=== PATIENT | female | born 1950 | race Caucasian/White ===

== ENCOUNTER → 2016-12-22 | Day surgery (SDC) | payer OTHER ==
[2016-12-05 13:20] VITALS: Ht 154.9 cm; Wt 52.3 kg
[~2016-12-22] VITALS: Ht 154.9 cm; Wt 52.3 kg
[~2016-12-22] MED LIST: ACETAMINOPHEN 325 MG TAB PO PRN; ADAL40KI SC; AMVISC PLUS 0.8ML SYRINGE INT OCU ONE; ATROPINE SULFATE 0.1 MG/ML 5ML SYR IV PRN; BSS FLUSH ONE; ETOD400T PO; EpHEDrine SULFATE INJ 50 MG/ML AMP IV PRN; EpINEphrine INJ 1MG/ML AMP 1 MG/ML AMP ONE; FOLI1TAB7 PO; IRON PO; LACTATED RINGER'S 1000ML 500 ML IV SCH; LIDOCAINE 3.5% OPH GEL PER APPLICATION CHARGE ONE; LIDOCAINE HCL 1% MPF 2 ML VIAL ONE; LUTE20TA PO; METH2.5T PO; MIDAZOLAM HCL 1 MG/ML 2ML VIAL ONE; MULT-506 PO; OCUCOAT 1 ML SOLN IO ONE; POVIDONE-IODINE OP SOLN 30 ML BTL ONE; PROPARACAINE 0.5% OP SOLN PER DROP CHARGE OPL SCH; TOBRAMYCIN/DEXAMETHASONE OPH OINT PER APPLN CHARGE ONE
[2016-12-22] MEDS: PHENYLEPHRINE HCL 2.5% OP SOLN PER DROP CHARGE OPL SCH ×2 (07:28→07:33)
[2016-12-22] MEDS: TROPICAMIDE 1% OP SOLN PER DROP CHARGE OPL SCH ×2 (07:29→07:34)
[2016-12-22] MEDS: CYCLOPENTOLATE HCL 1% OP SOLN PER DROP CHARGE OPL SCH ×2 (07:30→07:35)
[2016-12-22] MEDS: KETOROLAC 0.5% OP SOLN PER DROP CHARGE OPL SCH ×2 (07:31→07:36)
[2016-12-22] MEDS: GATIFLOXACIN OP SOLN PER DROP CHARGE OPL SCH ×2 (07:32→07:42)
--- NOTE | 2016-12-22 07:49 | History & Physical Bridge - SC ---
H&P Re-Evaluation Bridge Note: I have examined the patient, reviewed the History & Physical and in the interval since the performance of the History & Physical I have noted the following changes of clinical significance: No changes noted
--- NOTE | 2016-12-22 08:32 | [facility] Operative Report ---
Operative Report Date of Service Dec 22, 2016. Operative Report 1. PREOPERATIVE DIAGNOSIS: Cataract of the left eye. 2. POSTOPERATIVE DIAGNOSIS: Same. 3. PROCEDURE: Phacoemulsification with intraocular lens implantation of the left eye. SURGEON: Dr. Christopher Velarde. ANESTHESIA: Topical Lidocaine gel, 1% Non- Preserved intracameral Lidocaine, and monitored intravenous sedation. INDICATIONS FOR THE PROCEDURE: The patient is a 66 - year-old female with a history of cataract of the left eye causing significant visual impairment. The details of the proposed procedure were explained to the patient who asked appropriate questions and following discussion of all risks, benefits and alternatives agreed to have the procedure done. 4. OPERATION AND FINDINGS: DESCRIPTION OF PROCEDURE: After informed consent was obtained, the patient was brought to the Operating Room at the [facility]. The patient was placed in a supine position and then the left eye was prepped and draped in the usual sterile fashion for intraocular surgery. A drop of topical Lidocaine gel was placed in the operative eye. A wire lid speculum was then placed in the fornices. A corneal paracentesis was then created temporally. The Non-Preserved Lidocaine was then instilled into the anterior chamber. The anterior chamber was then pressurized with viscoelastic. A 2.0 mm clear corneal incision was then created temporally. A cystotome was inserted into the anterior chamber and used to create a tear in the anterior lens capsule. This capsular tear was then used to create a small flap and the flap was dragged in a counterclockwise direction in order to create a continuous curvilinear capsulorrhexis. Hydrodissection was accomplished with balanced salt solution. Phacoemulsification of the lens nucleus was then performed in a standard [id number] technique. The phaco time was 36 seconds with an average power of 16 %. The remaining cortical material was removed using irrigation aspiration. The capsular bag was then filled with viscoelastic. A Bausch & Lomb MI60L +23.0 diopters lens was then loaded into the injector and injected into the capsular bag. The remaining viscoelastic was removed with the irrigation aspiration handpiece. The wound was hydrated and then checked and found to be watertight. The intraocular pressure was checked and found to be adequate. The wire lid speculum was removed and the patient's face was cleaned and dried. TobraDex ointment was placed in the inferior fornix. The patient was discharged to the Recovery Room having tolerated the procedure well. There were no complications. The patient will be seen tomorrow in the office for follow-up. I attest to the content of the Intraoperative Record and any orders documented therein. Any exceptions are noted below.
--- NOTE | 2016-12-22 08:32 | Discharge Instructions-SurgCtr ---
Discharge Instructions Date of Service Dec 22, 2016. Visit Reason for Visit: Cataract Left Eye Discharge Discharge Diagnosis / Problem: cataract Discharge Goals Goal(s): Improve function Activity Recommendations Activity Limitations: per Instructions/Follow-up section Anesthesia . Post Anesthesia Instructions: If you have had General Anesthesia or IV Sedation: * Do not drive today. * Resume driving when surgeon permits. * Do not make important decisions or sign legal documents today. * Call surgeon for: 1. Temperature elevations greater than 101 degrees F. 2. Uncontrollable pain. 3. Excessive bleeding. 4. Persistent nausea and vomiting. 5. Medication intolerance (nausea, vomiting or rash). * For nausea and vomiting use only clear liquids such as: tea, soda, bouillon until nausea subsides, then gradually increase diet as tolerated. * If you have any concerns or questions, call your surgeon's office. If physician is unavailable and it is an emergency, call 911 or go to the nearest emergency room. . Instructions / Follow-Up Instructions / Follow-Up ACTIVITY RECOMMENDATIONS: * No strenuous lifting, jogging or running for 4 days * No swimming or yard work for 1 week. * Limited bending is permitted, such as putting on shoes. RETURN TO SCHOOL/WORK: No work until seen by physician in office. MEDICATIONS: Resume previous medications unless instructed otherwise by your surgeon. This includes eye drops for glaucoma. Zymaxid/Gatifloxacin (zepeda cap) - one drop every 2 hours until bedtime Nevanac/Ilevro/Prolensa/Ketorolac (mckeon cap) - one drop every 4 hours until bedtime Prednisolone (white/pink cap, SHAKE WELL) - one drop every 2 hours until bedtime Starting tomorrow - all 3 drops every 4 hours until seen in the office Optive drops - as needed for discomfort SPECIAL CARE INSTRUCTIONS: * Wear eyeshield when sleeping, for four nights. * You may wear your own glasses or sunglasses while awake. * You may read or watch TV * You may shower and wash your face, but be gentle around the eye and pat dry. * Blurry vision and mild irritation are normal. * Call office if pain is more severe or vision becomes dark at . FOLLOW UP VISIT: Follow-up with Dr Velarde tomorrow. Diet Recommendations Home Diet: resume previous diet Procedures Procedures Performed: Left Cataract Phacoemulsification With Intraocular Lens Implant Pending Studies Studies pending at discharge: no Medical Emergencies . Who to Call and When: Medical Emergencies: If at any time you feel your situation is an emergency, please call 911 immediately. . Non-Emergent Contact Non-Emergency issues call your: [employer] . . "Provider Documentation" section prepared by Christopher Velarde. .
[2016-12-22 08:33] VITALS: TEMP 36.6
--- NOTE | 2016-12-22 08:38 | Anesthesia Progress Nt - [facility] ---
Anesthesia Post Op Note Date & Time Dec 22, 2016 at 08:38 Vital Signs Pain Intensity: 0 Vital Signs Past 12 Hours Date Time Temp Pulse Resp B/P (MAP) Pulse Ox O2 Delivery O2 Flow Rate FiO2 12/22/16 07:19 36.9 62 22 121/67 (85) 100 Room Air Notes Mental Status: alert / awake / arousable, participated in evaluation Pt Amnestic to Procedure: Yes Nausea / Vomiting: adequately controlled Pain: adequately controlled Airway Patency, RR, SpO2: stable & adequate BP & HR: stable & adequate Hydration State: stable & adequate Anesthetic Complications: no major complications apparent
[2016-12-22 08:55] VITALS: BP 103/46; PULSE 57; O2SAT 99
== END | disposition home or self-care (01) ==
LOC: X.SURG 06:52
PROVIDERS: ATTEND Ophthalmology
DX: H26.9 Unspecified cataract (principal); M06.9 Rheumatoid arthritis, unspecified; Z79.899 Other long term (current) drug therapy

== ENCOUNTER → 2017-01-26 | Day surgery (SDC) | payer OTHER ==
[2017-01-04 07:54] VITALS: Ht 154.9 cm; Wt 52.3 kg
[~2017-01-26] VITALS: Ht 154.9 cm; Wt 52.3 kg
[~2017-01-26] MED LIST changes: +500ML BSS 0.3ML EPI 1:1000PF IRRIG ONE; +ONDANSETRON INJ 2 MG/ML 2 ML VIAL IV PRN; -PROPARACAINE 0.5% OP SOLN PER DROP CHARGE OPL SCH; +PROPARACAINE 0.5% OP SOLN PER DROP CHARGE OPR SCH
[2017-01-26] MEDS: PHENYLEPHRINE HCL 2.5% OP SOLN PER DROP CHARGE OPR SCH ×2 (10:14→10:19)
[2017-01-26] MEDS: TROPICAMIDE 1% OP SOLN PER DROP CHARGE OPR SCH ×2 (10:15→10:20)
[2017-01-26] MEDS: CYCLOPENTOLATE HCL 1% OP SOLN PER DROP CHARGE OPR SCH ×2 (10:16→10:21)
[2017-01-26] MEDS: KETOROLAC 0.5% OP SOLN PER DROP CHARGE OPR SCH ×2 (10:17→10:22)
[2017-01-26] MEDS: GATIFLOXACIN OP SOLN PER DROP CHARGE OPR SCH ×2 (10:18→10:28)
--- NOTE | 2017-01-26 11:37 | Discharge Instructions-SurgCtr ---
Discharge Instructions Date of Service Jan 26, 2017. Visit Reason for Visit: Cataract Right Eye Discharge Discharge Diagnosis / Problem: cataract Discharge Goals Goal(s): Improve function Activity Recommendations Activity Limitations: per Instructions/Follow-up section Anesthesia . Post Anesthesia Instructions: If you have had General Anesthesia or IV Sedation: * Do not drive today. * Resume driving when surgeon permits. * Do not make important decisions or sign legal documents today. * Call surgeon for: 1. Temperature elevations greater than 101 degrees F. 2. Uncontrollable pain. 3. Excessive bleeding. 4. Persistent nausea and vomiting. 5. Medication intolerance (nausea, vomiting or rash). * For nausea and vomiting use only clear liquids such as: tea, soda, bouillon until nausea subsides, then gradually increase diet as tolerated. * If you have any concerns or questions, call your surgeon's office. If physician is unavailable and it is an emergency, call 911 or go to the nearest emergency room. . Instructions / Follow-Up Instructions / Follow-Up ACTIVITY RECOMMENDATIONS: * No strenuous lifting, jogging or running for 4 days * No swimming or yard work for 1 week. * Limited bending is permitted, such as putting on shoes. RETURN TO SCHOOL/WORK: No work until seen by physician in office. MEDICATIONS: Resume previous medications unless instructed otherwise by your surgeon. This includes eye drops for glaucoma. Zymaxid/Gatifloxacin (zepeda cap) - one drop every 2 hours until bedtime Nevanac/Ilevro/Prolensa/Ketorolac (mckeon cap) - one drop every 4 hours until bedtime Prednisolone/Durezol (white/pink cap, SHAKE WELL) - one drop every 2 hours until bedtime Starting tomorrow - all 3 drops every 4 hours until seen in the office Optive drops - as needed for discomfort SPECIAL CARE INSTRUCTIONS: * Wear eyeshield when sleeping, for four nights. * You may wear your own glasses or sunglasses while awake. * You may read or watch TV * You may shower and wash your face, but be gentle around the eye and pat dry. * Blurry vision and mild irritation are normal. * Call office if pain is more severe or vision becomes dark at . FOLLOW UP VISIT: Follow-up with Dr Velarde tomorrow. Diet Recommendations Home Diet: resume previous diet Procedures Procedures Performed: Right Cataract Phacoemulsification With Intraocular Lens Implant Pending Studies Studies pending at discharge: no Medical Emergencies . Who to Call and When: Medical Emergencies: If at any time you feel your situation is an emergency, please call 911 immediately. . Non-Emergent Contact Non-Emergency issues call your: [employer] . . "Provider Documentation" section prepared by Christopher Velarde. .
--- NOTE | 2017-01-26 11:38 | [facility] Operative Report ---
Operative Report Date of Service Jan 26, 2017. Operative Report 1. PREOPERATIVE DIAGNOSIS: Cataract of the right eye. 2. POSTOPERATIVE DIAGNOSIS: Same. 3. PROCEDURE: Phacoemulsification with intraocular lens implantation of the right eye. SURGEON: Dr. Christopher Velarde. ANESTHESIA: Topical Lidocaine gel, 1% Non- Preserved intracameral Lidocaine, and monitored intravenous sedation. INDICATIONS FOR THE PROCEDURE: The patient is a 66 - year-old female with a history of cataract of the right eye causing significant visual impairment. The details of the proposed procedure were explained to the patient who asked appropriate questions and following discussion of all risks, benefits and alternatives agreed to have the procedure done. 4. OPERATION AND FINDINGS: DESCRIPTION OF PROCEDURE: After informed consent was obtained, the patient was brought to the Operating Room at the [facility]. The patient was placed in a supine position and then the right eye was prepped and draped in the usual sterile fashion for intraocular surgery. A drop of topical Lidocaine gel was placed in the operative eye. A wire lid speculum was then placed in the fornices. A corneal paracentesis was then created temporally. The Non-Preserved Lidocaine was then instilled into the anterior chamber. The anterior chamber was then pressurized with viscoelastic. A 2.0 mm clear corneal incision was then created temporally. A cystotome was inserted into the anterior chamber and used to create a tear in the anterior lens capsule. This capsular tear was then used to create a small flap and the flap was dragged in a counterclockwise direction in order to create a continuous curvilinear capsulorrhexis. Hydrodissection was accomplished with balanced salt solution. Phacoemulsification of the lens nucleus was then performed in a standard [id number] technique. The phaco time was 28 seconds with an average power of 15 %. The remaining cortical material was removed using irrigation aspiration. The capsular bag was then filled with viscoelastic. A Bausch & Lomb MI60L +23.5 diopters lens was then loaded into the injector and injected into the capsular bag. The remaining viscoelastic was removed with the irrigation aspiration handpiece. The wound was hydrated and then checked and found to be watertight. The intraocular pressure was checked and found to be adequate. The wire lid speculum was removed and the patient's face was cleaned and dried. TobraDex ointment was placed in the inferior fornix. The patient was discharged to the Recovery Room having tolerated the procedure well. There were no complications. The patient will be seen tomorrow in the office for follow-up. I attest to the content of the Intraoperative Record and any orders documented therein. Any exceptions are noted below.
--- NOTE | 2017-01-26 11:56 | Anesthesia Progress Nt - [facility] ---
Anesthesia Post Op Note Date & Time Jan 26, 2017 at 11:56 Vital Signs Pain Intensity: 0 Vital Signs Past 12 Hours Date Time Temp Pulse Resp B/P (MAP) Pulse Ox O2 Delivery O2 Flow Rate FiO2 01/26/17 11:38 36 54 16 105/64 (78) 100 Room Air 01/26/17 10:04 36.5 55 18 129/64 (85) 100 Room Air Notes Mental Status: alert / awake / arousable, participated in evaluation Pt Amnestic to Procedure: Yes Nausea / Vomiting: adequately controlled Pain: adequately controlled Airway Patency, RR, SpO2: stable & adequate BP & HR: stable & adequate Hydration State: stable & adequate Anesthetic Complications: no major complications apparent
[2017-01-26 12:02] VITALS: BP 114/72; PULSE 65; O2SAT 100
== END | disposition home or self-care (01) ==
LOC: X.SURG 09:21
PROVIDERS: ATTEND Ophthalmology
DX: H26.9 Unspecified cataract (principal); M85.80 Other specified disorders of bone density and structure, unspecified site; M06.9 Rheumatoid arthritis, unspecified; Z79.899 Other long term (current) drug therapy

== ENCOUNTER → 2017-04-27 | Outpatient (CLI) | payer OTHER ==
[~2017-04-27] MED LIST changes: -500ML BSS 0.3ML EPI 1:1000PF IRRIG ONE; -ACETAMINOPHEN 325 MG TAB PO PRN; -AMVISC PLUS 0.8ML SYRINGE INT OCU ONE; -ATROPINE SULFATE 0.1 MG/ML 5ML SYR IV PRN; -BSS FLUSH ONE; -EpHEDrine SULFATE INJ 50 MG/ML AMP IV PRN; -EpINEphrine INJ 1MG/ML AMP 1 MG/ML AMP ONE; -LACTATED RINGER'S 1000ML 500 ML IV SCH; -LIDOCAINE 3.5% OPH GEL PER APPLICATION CHARGE ONE; -LIDOCAINE HCL 1% MPF 2 ML VIAL ONE; -MIDAZOLAM HCL 1 MG/ML 2ML VIAL ONE; -OCUCOAT 1 ML SOLN IO ONE; -ONDANSETRON INJ 2 MG/ML 2 ML VIAL IV PRN; -POVIDONE-IODINE OP SOLN 30 ML BTL ONE; -PROPARACAINE 0.5% OP SOLN PER DROP CHARGE OPR SCH; -TOBRAMYCIN/DEXAMETHASONE OPH OINT PER APPLN CHARGE ONE
== END | disposition home or self-care (01) ==
LOC: C.LAB 12:07
PROVIDERS: ATTEND Internal Medicine Hematology & Oncology
DX: D70.9 Neutropenia, unspecified (principal); D69.6 Thrombocytopenia, unspecified

== ENCOUNTER → 2017-06-13 | Outpatient (CLI) | payer OTHER ==
--- NOTE | 2017-06-14 13:44 | MAMMOGRAPHY REPORT ---
BILATERAL DIGITAL SCREENING MAMMOGRAM TOMOSYNTHESIS WITH CAD: 06/13/2017 CLINICAL HISTORY: Routine screening. Patient has no complaints. TECHNIQUE: Breast tomosynthesis in addition to standard 2D mammography was performed. Current study was also evaluated with a Computer Aided Detection (CAD) system. COMPARISON: Comparison is made to exams dated: 06/06/2016 mammogram, 06/04/2015 mammogram, 4 mammogram, 05/27/2013 mammogram, 05/08/2012 mammogram, and 04/28/2011 mammogram - [facility]. BREAST COMPOSITION: There are scattered areas of fibroglandular density in both breasts. FINDINGS: The parenchymal pattern is unchanged. No developing mass, architectural distortion or clus ter of suspicious microcalcifications is seen in either breast. IMPRESSION: ACR BI-RADS CATEGORY 2: BENIGN There is no mammographic evidence of malignancy. A 1 year screening mammogram is recommended. The pa tient will receive written notification of the results. Approximately 10% of breast cancers are not detected with mammography. A negative mammographic report should not delay biopsy if a clinically suggestive mass is present. Leonie Costello M.D. ay/:06/13/2017 16:48:02 Senior Clinical Project Manager: Ruth FARRIS(Nanci)(Jonn)([place]), [facility] letter sent: Normal 1/2 BI-RADS Code: ACR BI-RADS Category 2: Benign
== END | disposition home or self-care (01) ==
LOC: C.MAMM 14:14
PROVIDERS: ATTEND Family Medicine
DX: Z12.31 Encounter for screening mammogram for malignant neoplasm of breast (principal)

== ENCOUNTER → 2017-07-25 | Outpatient (CLI) | payer OTHER ==
[~2017-07-25] MED LIST changes: -FOLI1TAB7 PO; +FOLI1TAB8 PO
--- NOTE | 2017-07-25 21:28 | DIAGNOSTIC IMAGING REPORT ---
R SHOULDER MIN 2 VIEWS ROUTINE CLINICAL HISTORY: M25.519 RIGHT SHOULDER PAIN COMPARISON: None. DISCUSSION: No acute fractures or dislocations are visualized. There are mild degenerative changes. There is a corticated ossicle adjacent to the superior lateral margin of the scapular glenoid. This is felt to be old. IMPRESSION: 1. Degenerative change. 2. No acute fractures or dislocations Electronically signed by: Avi Holguin M.D. 07/25/2017 9:27 PM Dictated Date/Time: 07/25/2017 9:26 PM
== END | disposition home or self-care (01) ==
LOC: C.RAD 20:49
PROVIDERS: ATTEND Family Medicine
DX: M25.519 Pain in unspecified shoulder (principal)

== ENCOUNTER → 2017-09-25 | Outpatient (CLI) | payer OTHER ==
--- NOTE | 2017-09-25 18:10 | DIAGNOSTIC IMAGING REPORT ---
RIGHT SHOULDER MRI HISTORY: Right shoulder pain. TECHNIQUE: Multiplanar multisequence MRI of the right shoulder was performed without contrast. COMPARISON STUDY: Right shoulder 08/04/2017. FINDINGS: AC joint: Moderate AC joint arthrosis demonstrated by joint space narrowing, joint fluid, and small marginal osteophytes. Rotator cuff: Complete full-thickness tear of the supraspinatus tendon which demonstrates up to 3.6 cm of retraction to the level of the glenoid. There is also a near complete full-thickness tear of the infraspinatus tendon with greater than 90% of the fibers involved. This also demonstrates retraction to the level of the glenoid. The teres minor is thin but intact. Focal complete full-thickness tear at the proximal subscapularis tendon best seen on axial image 9. The tear measures 5 mm in size and is best seen on axial image 9 of 21. Near complete fatty atrophy of the supraspinatus, infraspinatus, subscapularis muscles. Abnormal oval-shaped focus within the musculotendinous junction of the infraspinatus which measures 1.5 cm. This could represent an area of focal calcification or old hemorrhage related to trauma. This is best seen on axial image 9. Labrum: The superior labrum is not identified and likely completely torn/macerated. Biceps: The proximal long head of the biceps tendon is thinned suggestive of a partial tear and is medially dislocated from the proximal bicipital groove. Bones: No acute fracture or dislocation. Small marginal osteophytes at the glenohumeral joint. Patchy nonspecific marrow edema at the humeral neck. Cartilage: Full-thickness cartilage loss within the supraclinoid and majority of the humeral head consistent with degenerative change. Miscellaneous: Moderate joint effusion. Multiple small intra-articular loose bodies. IMPRESSION: 1. Large full-thickness rotator cuff tears as described above. The full-thickness tear through the proximal subscapularis tendon may be subacute. 2. The superior labrum is not identified consistent with a tear/maceration. 3. Multiple small intra-articular loose bodies and a moderate joint effusion. 4. Partially torn and medially dislocated proximal long head of the biceps tendon. 5. 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 6. Additional findings as described above. Electronically signed by: Daren Madden M.D. 09/25/2017 6:09 PM Dictated Date/Time: 09/25/2017 5:55 PM
== END | disposition home or self-care (01) ==
LOC: C.MRIBC 15:15
PROVIDERS: ATTEND Family Medicine
DX: M75.101 Unspecified rotator cuff tear or rupture of right shoulder, not specified as traumatic (principal); S46.119A Strain of muscle, fascia and tendon of long head of biceps, unspecified arm, initial encounter; X58.XXXA Exposure to other specified factors, initial encounter; M19.011 Primary osteoarthritis, right shoulder

== ENCOUNTER 2017-11-16 07:24 | Inpatient (IN) | payer OTHER ==
--- NOTE | 2017-10-30 07:55 | History and Physical ---
History & Physical Date of Service Oct 30, 2017. History & Physical CHIEF COMPLAINT: Right shoulder pain. HISTORY OF PRESENT ILLNESS: This 67-year-old female presents to clinic today for preoperative history and physical. She complains of increased pain and decreased range of motion in the right upper extremity since June 2017. She states she has failed conservative treatment with injections and physical therapy and is experiencing significant weakness in the right upper extremity that is affecting her activities of daily living. PAST SURGICAL HISTORY: Bilateral intraocular lens transplant, bilateral cataract removal, colonoscopy, tenosynovectomy, tubal ligation, dental excision and bilateral hand surgery. PAST MEDICAL HISTORY: Anemia, leukocytopenia, osteopenia, rheumatoid arthritis and thrombocytopenia. FAMILY HISTORY: Positive for breast cancer, COPD, heart disease, lung cancer and stroke. ALLERGIES: The patient has no known drug allergies. CURRENT MEDICATIONS: She is taking, etodolac 400 mg oral tablet 2 tabs twice daily as needed for pain, Lutein 20 mg oral tablet 1 tab daily, multivitamin unknown dosage 1 tab daily, tramadol 50 mg oral tablet 1 tab every 6 hours as needed for pain, triamcinolone 0.5% topical cream 1 application 3 times daily as needed, Tylenol Extra Strength dmoz-leh-ksgywga 500 mg tablet 1-2 tabs as needed for pain. SOCIAL HISTORY: The patient denies a history of smoking, alcohol or illicit drug use. PHYSICAL EXAMINATION: Skin: The patient's skin is normal in appearance. No open skin lesions or discharge. Eyes: Pupils are equal and reactive to light and accommodating. Extraocular movements are intact. Throat: Posterior oropharynx clear with absence of edema, erythema or exudate. Cardiovascular exam: The patient has a regular rate and rhythm, no murmurs or gallops appreciated. Lungs: Auscultation of lung vasquez reveals clear breath sounds throughout with no wheezing, rales or rhonchi. Abdomen is nonobese, nondistended, nontender with normoactive bowel sounds. Extremities: The patient has significant rheumatic changes involving the MCP joints of both hands. Right shoulder, the patient experiences tenderness to palpation over the anterior and posterior shoulder. There is no edema, erythema, ecchymosis, warmth, palpable deformity. Range of motion is significantly limited. The patient is able to forward flex and abduct to 70 degrees. Has appreciable weakness with applied resistance. The patient experiences significant pain with performing external and internal rotation test, positive cross-arm test, positive subscapularis liftoff test, positive Neer's and Perez-Narayan impingement test. She does have full range of motion in her right elbow, appropriate range of motion of her hand and fingers. She is neurovascularly intact in the right upper extremity. Neurological exam, cranial nerves 2 through 12 intact. No motor or sensory deficit. Psychological/general exam: The patient is alert and oriented x3 with proper grooming and hygiene. DIAGNOSES: Right shoulder rotator cuff arthropathy. PROCEDURE: Right reverse total shoulder arthroplasty. MRI: MRI of the shoulder shows tears of the infraspinatus, supraspinatus and subscapularis with fatty infiltration, retraction and medial dislocation of the long head of the biceps tendon. There is also moderate glenohumeral arthritis and subacromial spur appreciated. PLAN: The patient is scheduled to undergo this procedure with Dr. Babar Barrow at the [facility] on 11/16/17. Risks and complications of the surgery such as infection, bleeding, pain, scarring, nerve and blood vessel damage, weakness, wound problems, stiffness, incomplete relief of symptoms, heart attack, stroke, , blood clots, embolism, hardware failure, loosening, fracture and arthritis were explained to the patient by Dr. Barrow during today's visit. The patient understands and agrees. Written consent to perform the procedure was obtained. We will also obtain a preoperative CBC; however, we will not obtain this until a week before surgery. She recently had a CBC done by her sterile processing technologist earlier today. However, we will need to obtain a complete metabolic panel, PT, INR, PTT, blood type and screen, hemoglobin A1c, urinalysis with a urine culture and sensitivity, nasal swab for MRSA as well as an EKG. The patient states she will obtain the necessary tests before her preanesthesia clearance test scheduled for Monday. The patient states that she is planning on doing outpatient physical therapy in our PT clinic and is already scheduled for her first 2 sessions. The first one is day #1 postoperatively at 10:30 a.m. She will be scheduled for postoperative followup with myself on 11/28/17 at 12:45. I provided her with a handicap placard to use for 6 months due to the surgery she is obtaining. I also gave her instructions about use of antibiotics for dental procedures after a total joint arthroplasty. The patient was given some information about lectures given the [facility] involving joint replacement surgery. I advised her that I will prescribe her with opioid analgesics, Celebrex and aspirin upon discharge from the hospital. Aspirin will be for DVT prophylaxis and she will use that along with LEILANI stockings. She states she will use her prescription Tylenol along with Celebrex for pain control and most likely will elect to only use her prescription tramadol due to the adverse effect she has had using oxycodone in the past. The patient also states that her sterile processing technologist requests that we do a postoperative CBC in about 1 week after the procedure is performed. The patient and had multiple questions that were all answered satisfactorily. They understood all instructions that were provided, thanked us for the care that they had received and stated that if they have any other questions or concerns that should arise prior to the surgery date they will contact the clinic accordingly.
[2017-10-30 09:08] VITALS: BMI 22.0
--- NOTE | 2017-10-30 09:55 | PAT Medication Instructions ---
Service Date Oct 30, 2017. Current Home Medication List Acetaminophen (Tylenol), 500 MG PO QD PRN for Pain Etodolac (Etodolac), 1 TAB PO BID Lutein (Lutein), 1 TAB PO QAM Multivitamin (Multivitamin), 1 TAB PO QAM Triamcinolone Acet (Triamcinolone Acetonide), 1 APPLN EX TID PRN for Itching Medication Instructions For Your Scheduled Surgery - Hold the following medications 2 weeks prior to surgery: Lutein (Lutein), 1 TAB PO QAM - Hold the following medications 7 days prior to surgery per rheumatology: Etodolac (Etodolac), 1 TAB PO BID - Hold the following medications 24 hours prior to surgery: Triamcinolone Acet (Triamcinolone Acetonide), 1 APPLN EX TID PRN for Itching - Hold the following medications the morning of surgery: Multivitamin (Multivitamin), 1 TAB PO QAM - Take the following medications the morning of surgery with a sip of water: Acetaminophen (Tylenol), 500 MG PO QD PRN for Pain (if needed, can be taken up to four hours before surgery) - Take the following medications as scheduled the night before surgery: Acetaminophen (Tylenol), 500 MG PO QD PRN for Pain (if needed) If you have any questions please call us at [phone] or [phone] or [phone]
[2017-10-30 11:23] LABS: ALBUMIN 3.5 gm/dl (3.4-5.0); CALCIUM 9.6 mg/dl (8.5-10.1); CREATININE 0.62 mg/dl (0.60-1.20); POTASSIUM 4.6 mmol/L (3.5-5.1)
--- NOTE | 2017-10-30 11:41 | DIAGNOSTIC IMAGING REPORT ---
CERVICAL SPINE 2 OR 3 VIEWS HISTORY: Preoperative evaluation. Rheumatoid arthritis. pre-op RA, lateral neutral, flexion, extension COMPARISON: None. FINDINGS: The cervical spine is visualized from C1 through the superior endplate of T1. There is no fracture. No evidence for positional subluxation with the patient in flexion or extension. The C1-C2 complex remains aligned anatomically. There is a 1 mm variation in the C3-C4 level with maximum retrolisthesis of C3-C4 with the patient in extension. This measures no more than 2 mm with subluxation in flexion of 1.5 mm. Significant degenerative disc changes throughout. Prevertebral soft tissues and the atlantodens interval are intact. IMPRESSION: 1. Degenerative change throughout the cervical spine. 2. C1-C2 complex is intact with no evidence for positional subluxation. 3. Grade 1 reversal subluxation C3 on C4 most likely on a degenerative basis. 4. Maximum posterior subluxation of C3 is 2 mm in extension and 1.5 mm in flexion. The above report was generated using voice recognition software. It may contain grammatical, syntax or spelling errors. Electronically signed by: James Valle M.D. 10/30/2017 11:39 AM Dictated Date/Time: 10/30/2017 11:37 AM
[2017-10-30 12:02] LABS: HEMOGLOBIN A1C 4.2 % (4.5-5.6)
[2017-11-16] VITALS (9 sets, daily range): BP systolic 89–133; BP diastolic 49–60; PULSE 59–82; TEMP 36.4–36.7; O2SAT 92–99; Ht 154.9 cm; Wt 55.2 kg
[~2017-11-16] VITALS: Ht 154.9 cm; Wt 55.2 kg
[2017-11-16] MEDS: TRANEXAMIC ACID INJ 1,000 MG x 2 Bags IV SCH ×4 (06:00→15:21)
[~2017-11-16 07:24] MED LIST changes: +ACET-1256 PO; +ACETAMINOPHEN 500 MG TAB PO SCH; -ADAL40KI SC; +CEFAZOLIN 2000MG IV PUSH 15 ML IV SCH; +CeleBREX 200 MG CAP PO SCH; +DEXAMETHASONE 4 MG TAB PO SCH; +FAMOTIDINE 20 MG TAB PO SCH; -FOLI1TAB8 PO; -IRON PO; +LACTATED RINGER'S 1000ML 1,000 ML IV SCH; +LACTATED RINGER'S 1000ML IV SCH; -METH2.5T PO; +ROPIVACAINE 0.5% 5 MG/ML 30 ML VIAL ONE; +ROPIVACAINE 5MG/ML 30 ML 150 MG, BUPIVACAINE 0.5% MPF INJ 30 ML, EpINEphrine HCL INJ 0.... INFIL SCH; +SCOPOLAMINE 1.5 MG TDSY TD SCH; +TRAMADOL HCL 50 MG TAB PO SCH; +TRIA0.5C4 EX; +[UNRECOGNIZED DRUG - OTHER] SCH
[2017-11-16] MEDS ORDERED: MIDAZOLAM HCL 1 MG/ML 2ML VIAL ONE ×2 (07:51)
[2017-11-16] MEDS ORDERED: FENTANYL CITRATE INJ 50 MCG/1 ML 2 ML VIAL ONE (07:52)
[2017-11-16] MEDS ORDERED: BUPIVACAINE 0.25% 30 ML VIAL ONE (08:00)
[2017-11-16] MEDS ORDERED: EpINEphrine HCL INJ 1 MG/ML 1ML SYRINGE ONE (08:00)
[2017-11-16] MEDS ORDERED: BACITRACIN 50000 UNIT VIAL ONE (08:00)
[2017-11-16] MEDS ORDERED: EpINEphrine INJ 1MG/ML AMP 1 MG/ML AMP ONE (08:01)
[2017-11-16] MEDS ORDERED: PHENYLEPHRINE 100MCG/ML 5ML SYR IV PRN (08:15)
[2017-11-16] MEDS ORDERED: ONDANSETRON INJ 2 MG/ML 2 ML VIAL IV PRN ×2 (08:15→12:15)
[2017-11-16] MEDS ORDERED: ATROPINE SULFATE 0.1 MG/ML 5ML SYR IV PRN (08:15)
[2017-11-16] MEDS ORDERED: FENTANYL CITRATE INJ 50 MCG/1 ML 2 ML VIAL IV PRN (08:15)
[2017-11-16] MEDS ORDERED: HYDROmorphone INJ 1 MG/ML SYR IV PRN (08:15)
[2017-11-16] MEDS ORDERED: PROMETHAZINE HCL INJ 12.5 MG in SODIUM CHLORIDE 0.9% 50ML 50 ML IV PRN (08:15)
[2017-11-16] MEDS ORDERED: EpHEDrine SULFATE INJ 50 MG/ML AMP IV PRN (08:15)
[2017-11-16] MEDS ORDERED: POVIDONE-IODINE OP SOLN 30 ML BTL ONE (09:36)
[2017-11-16] MEDS ORDERED: ARTIFICIAL TEARS OP OINT 3.5 GM TUBE ONE (10:05)
[2017-11-16] MEDS ORDERED: ONDANSETRON INJ 2 MG/ML 2 ML VIAL ONE (10:15)
[2017-11-16] MEDS ORDERED: LIDOCAINE HCL 2% 2 ML VIAL (20MG/ML) ONE (10:15)
[2017-11-16] MEDS ORDERED: GLYCOPYRROLATE INJ 0.2 MG/ML VIAL ONE (10:15)
[2017-11-16] MEDS ORDERED: NEOSTIGMINE METHYLSULFATE 5 MG/5 ML SYR ONE (10:15)
[2017-11-16] MEDS ORDERED: DEXAMETHASONE SOD INJ 4 MG/ML VIAL ONE (10:15)
[2017-11-16] MEDS ORDERED: PROPOFOL IV EMULSION 10 MG/ML 20 ML VIAL ONE (10:15)
[2017-11-16] MEDS ORDERED: PHENYLEPHRINE 100MCG/ML 5ML SYR ONE (11:01)
[2017-11-16] MEDS ORDERED: EpHEDrine SULFATE 50MG/5ML SYR ONE (11:01)
[2017-11-16] MEDS ORDERED: ROCURONIUM BROMIDE 10 MG/ML 5 ML VIAL ONE (11:01)
--- NOTE | 2017-11-16 11:54 | [facility] Post Operative Brief Note ---
Immediate Operative Summary Operative Date November 16, 2017. Pre-Operative Diagnosis Right shoulder rotator cuff arthropathy Post-Operative Diagnosis Same as preop Procedure(s) Performed Right Reverse Total Shoulder, biceps tenodesis Surgeon Dr. Barrow Supervisor Poultry Processing Surgeon(s) Fili Montez PA-C Estimated Blood Loss 100 ml Findings Consistent with Post-Op Diagnosis Specimens A. Head of Humerus Drains None Anesthesia Type General Regional Complication(s) none Disposition Accompanied Pt To Recover: no Disposition: Recovery Room / PACU
[2017-11-16] MEDS ORDERED: ALUMINUM/MAGNESIUM SUSP 30 ML UDC PO PRN (12:15)
[2017-11-16] MEDS ORDERED: CEFAZOLIN IV 2,000 MG in DEXTROSE 5% 50ML 50 ML IV SCH (12:15)
[2017-11-16] MEDS ORDERED: MoRPHine SULFATE 4 MG/ML 1 ML CARP\\VIAL IV PRN ×2 (12:15→15:15)
[2017-11-16] MEDS ORDERED: METOCLOPRAMIDE HCL INJ 5 MG/ML 2 ML VIAL IV PRN (12:15)
[2017-11-16] MEDS ORDERED: MAGNESIUM HYDROXIDE SUSP 30 ML UDC PO PRN (12:15)
[2017-11-16] MEDS ORDERED: TRIAMCINOLONE ACET 0.5% CR 15 GM TUBE EXT PRN (12:15)
--- NOTE | 2017-11-16 12:15 | [facility] Operative Report ---
Operative Report Operative Date November 16, 2017. Pre-Operative Diagnosis Right shoulder rotator cuff arthropathy Post-Operative Diagnosis Same as preop Procedure(s) Performed Right Reverse Total Shoulder Arthroplasty Surgeon Dr. Barrow Cash Processing Specialist Surgeon(s) Fili Montez PA-C Estimated Blood Loss 100 ml Specimens A. Head of Humerous Drains None Anesthesia Type General Regional Complication(s) none Disposition no Recovery Room / PACU Description of Procedure I was present during entire procedure and performed superficial skin closure. Please Dr. Barrow note for specifics of case. I attest to the content of the Intraoperative Record and any orders documented therein. Any exceptions are noted below.
[2017-11-16] MEDS ORDERED: ACET-1256 PO (12:31)
[2017-11-16] MEDS ORDERED: CLB/200 PO (12:31)
[2017-11-16] MEDS ORDERED: RXC5 PO (12:31)
[2017-11-16] MEDS ORDERED: ASPI81TA28 PO (12:31)
--- NOTE | 2017-11-16 12:33 | Discharge Instructions ---
Discharge Instructions Date of Service November 16, 2017. Admission Reason for Admission: Right Shoulder Rotator Cuff Arthropathy Discharge Discharge Diagnosis / Problem: Right shoulder rotator cuff arthropathy Discharge Goals Goal(s): Decrease discomfort, Improve function, Increase independence Activity Recommendations Activity Limitations: as noted below Lifting Limitations: until after follow-up appointment Exercise/Sports Limitations: until after follow-up appointment May Resume Sexual Activity: after follow-up appointment Shower/Bathe: tomorrow, keep incision dry Driving or Machine Use: No driving until cleared by orthopedic surgeon Weightbearing Status: Right non-weightbearing . Instructions / Follow-Up Instructions / Follow-Up Post-operative Instructions Dear Patient and Family/Friends, Before you are discharged from the hospital, it is important to know what to expect when you get home after surgery. To that end, we have created this sheet of discharge instructions which covers many commonly asked questions. Make sure you go through this sheet in its entirety with your nurse before you are discharged. Please note that we will go over the specifics of your surgery and recovery when you return for your first post-operative visit. Sincerely, Dr. Barrow Pain Expect to be in a fair amount of pain after surgery. Remember, our goal is not to eliminate your pain, but to make it tolerable. It is a good idea to stay ahead of your pain by taking the medications you were prescribed once you get home. Typically, the pain starts improving 3-7 days after surgery. You should start weaning off the narcotic pain medication (oxycodone, hydrocodone, hydromorphone, morphine) as soon as your pain improves. Please call our office if your pain is not adequately controlled. Ice Ice your operative site at least 5 times a day for 15-30 minutes at a time. Make sure you have a thin cloth between the ice or cooling unit and your skin to prevent samaniego bite. This is especially important if you received a nerve block. Continue icing your operative site for the first 5-7 days after surgery , then as needed. Diet/Nausea/Vomiting Start by drinking clear liquids and eating crackers. If you can tolerate this, then you may resume your normal diet. If you feel nauseated or vomit, take Zofran/ondansetron (if prescribed). Please call our office if you have intractable nausea or vomiting, or, if after hours, you may go to the Emergency Room for help. Constipation Constipation is a common side effect of narcotic pain medication. If you have not had a bowel movement within 2 days after surgery, we recommend purchasing an over the counter laxative such as Milk of Magnesia, Dulcolax, or Miralax from a local pharmacy, and taking it as instructed. Call our clinic if any questions. Slings and Braces If you were placed in a sling or brace, it must be worn at all times, including sleep. You may remove your sling or brace for physical therapy, home exercises , and showering. The length of time you will be in your brace and range of motion restrictions depends on what surgery you had; these details will be reviewed at your first post-operative appointment. Nerve block The anesthesia team sometimes places a nerve block to help with post-operative pain control. This results in significant numbness and inability to move the extremity. The nerve block usually wears off in 8-12 hours, but sometimes can last up to 24 hours. Please call our office if you are still unable to move your extremity after 24 hours, unless you received a pain pump to take home. Nerve blocks typically wear off quickly, so start taking pain medication as soon as you start feeling soreness near your surgical site. Weight bearing and Range of Motion. Do not bear any weight through your operative extremity immediately after surgery. If you had upper extremity surgery, do not lift anything with that arm. If you are in a knee brace, keep it locked in place until your follow-up. We will discuss your weight bearing, range of motion, and lifting restrictions in detail at your first post-operative appointment. Continuous Passive Motion (CPM) Machine If you were prescribed a CPM machine, it will start after your first post- operative appointment, at which time we will give you instructions on the range of motion settings and duration of treatment Physical therapy You will be given a prescription for physical therapy or occupational therapy at your first post-operative appointment. Typically, patients start therapy within 1 week of surgery Wound care and showering We will inspect your wound at your first post-operative visit, and may do a dressing change at that time. Most patients will be in a water-proof dressing that is removed 14 days after surgery. It is normal to see some dried blood on the dressing. Do not remove your dressing, paper strips or sutures yourself unless you are given permission. Showering is allowed the day after surgery. Do not scrub or remove any dressings. The wound should not be submerged underwater (i.e. in a bathtub or pool) until 4 weeks after surgery LEILANI stockings If you were given white stockings, these are to be worn at all times except to shower (on both legs) for the first 2 weeks after surgery. Driving You may not drive while taking narcotic pain medication or while in a cast, splint, sling or brace. You, the patient, need to make the final determination about when you are safe to drive, however, the earliest you may consider driving after surgery is below: Hand/Wrist/Elbow Surgery: 3 days Shoulder Surgery: 2 weeks Hip,/Knee/Ankle Surgery: 4 weeks Fracture repair: 6 weeks Return to Work Your return to work depends on what surgery was done and what type of work you do. Please bring any paperwork your employer needs completed to your first post -operative visit. Also, bring a description of your job duties, as this helps us to understand what risks you may face at work. Travel Avoid long distance travel (greater than 1 hour) in airplanes and cars for the first 6 weeks after surgery. If you must travel, you need to have a Doppler ultrasound done before you travel to rule out a blood clot in your legs. Follow-up You should have a follow-up appointment already scheduled 1-2 days after surgery. If not, please contact our office to make this appointment before you leave the hospital. When to call the office It is normal to have swelling and bruising in the limb that was operated on. This will improve with time. It is also normal to have fevers for the first 2 days after surgery. Reasons you should call your doctor include: Uncontrolled pain; Nausea, vomiting, or constipation that does not improve with medication; Fevers over 101.5, chills, sweats; Drainage or bleeding from the wound; Foul odor; Spreading areas of redness; Any other concerns Current Hospital Diet Patient's current hospital diet: Regular Diet Discharge Diet Recommended Diet: Regular Diet Procedures Procedures Performed: Right Reverse Total Shoulder Arthroplasty Pending Studies Studies pending at discharge: no Laboratory Results Hemoglobin A1c Test 10/30/17 10:09 Range/Units Estimated Average Glucose 74 mg/dl Hemoglobin A1c 4.2 L 4.5-5.6 % Medical Emergencies . Who to Call and When: Medical Emergencies: If at any time you feel your situation is an emergency, please call 911 immediately. . Non-Emergent Contact Non-Emergency issues call your: Primary Care Provider Call Non-Emergent contact if: you have a fever, temperature is above 101.5, your pain is not controlled, your pain is worsening, wound has increased drainage, you have any medication questions . "Provider Documentation" section prepared by Fili Montez. . [place] Drug Monitoring Program Search Results: patient reviewed within database, no issues identified, see additional documentation
--- NOTE | 2017-11-16 12:47 | DIAGNOSTIC IMAGING REPORT ---
R SHOULDER MIN 2 VIEWS ROUTINE CLINICAL HISTORY: Post shoulder surgery COMPARISON: 07/25/2017 DISCUSSION: Anatomic alignment posttotal right shoulder arthroplasty. Good contact between prosthetic and underlying bone. Surgical drains are in position. Expected soft tissue postoperative change. IMPRESSION: Anatomic alignment post right shoulder arthroplasty. The above report was generated using voice recognition software. It may contain grammatical, syntax or spelling errors. Electronically signed by: James Valle M.D. 11/16/2017 12:46 PM Dictated Date/Time: 11/16/2017 12:45 PM
--- NOTE | 2017-11-16 12:50 | Anesthesiology Progress Note ---
Anesthesia Post Op Note Date & Time November 16, 2017 at 12:50 Vital Signs Pain Intensity: 0 Vital Signs Past 12 Hours Date Time Temp Pulse Resp B/P (MAP) Pulse Ox O2 Delivery O2 Flow Rate FiO2 11/16/17 12:40 65 14 117/47 100 Nasal Cannula 3 11/16/17 12:30 67 16 108/46 100 Oxymask 10 11/16/17 12:20 70 16 109/42 100 Oxymask 10 11/16/17 12:13 36.0 68 16 122/34 99 Oxymask 10 11/16/17 08:06 36.6 59 20 133/49 95 Room Air Notes Mental Status: alert / awake / arousable, participated in evaluation Pt Amnestic to Procedure: Yes Nausea / Vomiting: adequately controlled Pain: adequately controlled Airway Patency, RR, SpO2: stable & adequate BP & HR: stable & adequate Hydration State: stable & adequate Anesthetic Complications: no major complications apparent
--- NOTE | 2017-11-16 14:01 | OPERATIVE REPORT ---
DATE OF OPERATION: 11/16/2017 PREOPERATIVE DIAGNOSIS: Right shoulder rotator cuff tear arthropathy. POSTOPERATIVE DIAGNOSES: 1. Right shoulder rotator cuff tear arthropathy. 2. Biceps tendinitis. OPERATIONS PERFORMED: 1. Right reverse total shoulder arthroplasty. 2. Right shoulder biceps tenodesis. SURGEON: Babar Barrow MD POTATO PEELING MACHINE OPERATOR SURGEON: Nova Montez. ESTIMATED BLOOD LOSS: 100 mL. COMPLICATIONS: None. SPECIMENS: Humeral head. IMPLANTS: 1. Tornier Perform 25 mm standard baseplate. 2. 6.5 x 30 mm central screw, three 5.0 mm peripheral screws measuring 26, 30 and 38 mm respectively. 3. 36 mm +3 lateralized glenosphere. 4. Size 4B long PTC Ascend Flex Tornier stem. 5. +0 humeral tray with a 1.5 mm low offset. 6. 36 +6 mm humeral insert. INDICATIONS: Ms. Mahajan is a 67-year-old female who has had debilitating pain in her right shoulder for over 6 months. She has undergone a trial of nonsurgical treatment including an injection as well as physical therapy which has failed to relieve her symptoms. MRI was obtained demonstrating retracted chronic tears of the supraspinatus, infraspinatus and subscapularis. She has medical diagnosis of rheumatoid arthritis. I had a long discussion with her about the risks and benefits of surgery, alternatives to surgery and expected outcomes. After reviewing all these she elected to proceed with surgery. All questions were answered. Informed consent was signed. OPERATIVE FINDINGS: The humeral head was bare of any cuff insertion at the supra and infraspinatus. There was a near full thickness tear of the subscapularis. An uncemented reverse total shoulder arthroplasty was performed and the biceps was tenodesed to the pec major. DESCRIPTION OF PROCEDURE: The patient was identified in the preoperative holding area where her surgical site was marked. She was given an interscalene block by anesthesia and brought back to main operating room where she was placed on the operating table and general anesthesia was administered. She was moved up in a modified beachchair position. All bony prominences were padded. Perioperative antibiotics were administered as well as 1 gram of tranexamic acid. She was prepped and draped in the normal sterile fashion. Prior to incision, a multidisciplinary timeout was called. All in the room were in agreement. We began by making an 8 cm incision for a deltopectoral approach to the shoulder. Cephalic vein was taken laterally. The clavipectoral fascia was incised along the lateral border of the conjoint tendon. The 3 sisters were coagulated. The long head of the biceps tendon was identified and was tenodesed to the pec major using a #2 Ethibond suture. The biceps tendon was then cut just above the tenodesis site and followed up through the bicipital groove and through the rotator interval where it was resected. A subscapularis peel was carried out using electrocautery. The subscap was tagged with #2 Ethibond sutures. The capsule was peeled off the humeral head all the way back to the teres minor insertion. The Fukuda retractor was then placed. Anterior and inferior capsular releases were performed after identifying and protecting the axillary nerve at all times. We then dislocated the humeral head. The cutting guide was placed and the humeral cut was made. The Sounders were used and went up to a size 4. We then cut the metaphyseal punch and broached it up to a size 4B. At this point, the calcar planer was used. The humeral head protector was then placed. The glenoid was then exposed using a Fukuda retractor posteriorly, a Bankart retractor anteriorly and a narrow Hohmann superiorly. Next, the remainder of the biceps tendon stump as well as the remaining labral tissue was excised. The vertical and horizontal axes were marked out on the glenoid with the Bovie. We then placed the drill guide at the crosshairs on the glenoid and drilled a K-wire bicortically. We then used a 10 mm reamer to ream out the central peg. We then drilled with for a 6.5 mm screw which was then measured and came to between 25-30, so I elected to use a 30 mm central screw. The glenoid was then gently reamed to obtain a flat surface, preserving the majority of the subchondral bone. The glenoid was then irrigated out with copious amounts of normal saline. The baseplate was assembled on the back table and was screwed down into position. The screw could be palpated and was slightly past the far cortex; however, I elected not to downsize to a shorter central screw because I did not want to lose bicortical purchase. Next, a posterior compression screw was placed followed by the superior and inferior locking screws. Excellent fixation was obtained. The anterior hole was left empty as the bone was quite thin and I wanted to avoid a fracture. Next, the 36 +3 mm trial was placed and was found to be an appropriate fit. Therefore, the 36+3 implant was opened up and was impacted then screwed down into position with excellent purchase in the underlying bone. Next, the humeral head was redislocated and the protector was removed. There was excellent torsional stability of the broach so I elected not to cement her humeral component. The low offset tray was placed on her humeral head cut surface. Once this was optimized it was set in position by tightening the set screw. The trial +6 mm polyethylene was then placed and we attempted to relocate the shoulder. There was excellent tension to the point where I did not want to relocate the shoulder because it could be difficult to redislocate the components without causing a fracture, so I removed the trial polyethylene and broach and prepared the implant on the back table. The intramedullary canal and the entirety of the wound was then irrigated with copious amounts of normal saline. The implant was assembled on the back table and was impacted down in position perfectly matching the broach. The joint was then relocated under appropriate tension. She was then brought through a range of motion, was able to bring her hand onto her abdomen, she could be forward flexed easily to 120 degrees and could be externally rotated past 45 degrees with her arm at the side without difficulty. I was very happy with this exam under anesthesia and therefore we irrigated out the wound with Betadine impregnated saline and began to close. The deltopectoral interval was reapproximated with three #2 Ethibond sutures. The deep dermis was run with a 2-0 Vicryl. The skin was run with a 3-0 Monocryl. Steri-Strips were applied followed by sterile dressing. She was placed into a sling with an abduction pillow, awoke from the anesthesia and transferred to the recovery room in stable condition. POSTOPERATIVE COURSE: Patient will be admitted overnight for pain control and monitoring. She will start physical therapy tomorrow morning. She will be in the sling for 4 weeks, but will be allowed to come out of the sling immediately for active and passive range of motion exercises. She will be on aspirin for DVT prophylaxis. X-rays will be obtained in the PACU I attest to the content of the Intraoperative Record and any orders documented therein. Any exceptions are noted below. DORISD
[2017-11-16] MEDS: CHECK SCOPOLAMINE PATCH PLACEMENT SCH (15:26)
[2017-11-16] MEDS ORDERED: NURSING VERBAL MED ORDER ONE (15:30)
[2017-11-16] MEDS ORDERED: IV FLUIDS COMPLETED PRN (16:45)
[2017-11-16] MEDS: OXYCODONE HCL IR 5 MG TAB (IMMEDIATE RELEASE) PO PRN (17:58)
[2017-11-16] MEDS: D5W AND 1/2NSS + 20MEQ KCL 1,000 ML IV SCH (17:58)
[2017-11-16] MEDS: FERROUS GLUCONATE 324 MG TAB PO SCH (17:58)
[2017-11-16] MEDS: CEFAZOLIN IV 2,000 MG in SYRINGE 0 ML IV SCH (18:01)
[2017-11-16] MEDS ORDERED: SENNA 8.6 MG TAB PO SCH (21:00)
[2017-11-16] MEDS: CeleBREX 200 MG CAP PO SCH (21:57)
[2017-11-16] MEDS: DOCUSATE SODIUM 100 MG CAP PO SCH (21:57)
[2017-11-16] MEDS: ACETAMINOPHEN 500 MG TAB PO SCH (21:58)
[2017-11-17] MEDS: OXYCODONE HCL IR 5 MG TAB (IMMEDIATE RELEASE) PO PRN ×3 (01:25→09:28)
[2017-11-17] MEDS: CEFAZOLIN IV 2,000 MG in SYRINGE 0 ML IV SCH (02:10)
[2017-11-17 03:17] VITALS: BP 110/59; PULSE 56; TEMP 36.7; O2SAT 98
[2017-11-17] MEDS: D5W AND 1/2NSS + 20MEQ KCL 1,000 ML IV SCH (03:45)
[2017-11-17] MEDS: ACETAMINOPHEN 500 MG TAB PO SCH (05:52)
[2017-11-17 06:27] LABS: HEMATOCRIT 30.7 % (37-47); HEMOGLOBIN 10.7 g/dL (12.0-16.0); MEAN CELL VOLUME 90.6 fL (80-100); MEAN CORPUSCULAR HEMOGLOBIN 31.6 pg (25-34); MEAN CORPUSCULAR HGB CONC 34.9 g/dl (32-36); MEAN PLATELET VOLUME 9.2 fL (7.4-10.4); PLATELET COUNT 116 K/uL (130-400); RED CELL DISTRIBUTION WIDTH CV 14.9 % (11.5-14.5); RED CELL DISTRIBUTION WIDTH SD 49.3 fL (36.4-46.3); WHITE BLOOD COUNT 9.19 K/uL (4.8-10.8)
[2017-11-17 07:01] LABS: CALCIUM 8.4 mg/dl (8.5-10.1); CREATININE 0.82 mg/dl (0.60-1.20); POTASSIUM 3.9 mmol/L (3.5-5.1)
--- NOTE | 2017-11-17 07:16 | Orthopedic Progress Note ---
Orthopedic Progress Note Date of Service November 17, 2017. Subjective Post OP Day: 1 Reports: feeling well Objective N/V intact, dressing C/D/I Date Time Temp Pulse Resp B/P (MAP) Pulse Ox O2 Delivery O2 Flow Rate FiO2 11/17/17 03:17 36.7 56 14 110/59 (76) 98 Room Air 11/16/17 23:50 95 Room Air 2.0 11/16/17 23:01 36.7 66 14 89/52 (64) 95 Room Air 11/16/17 19:43 36.5 69 16 95/60 (72) 94 Room Air 11/16/17 16:19 36.4 69 16 96/55 (69) 98 Room Air 11/16/17 15:31 36.4 76 16 104/50 (68) 99 Nasal Cannula 2.0 11/16/17 15:26 Nasal Cannula 2.0 11/16/17 14:30 82 16 104/56 (72) 92 11/16/17 14:00 69 18 104/54 (71) 95 11/16/17 13:30 Nasal Cannula 2.0 11/16/17 13:30 Nasal Cannula 2.0 11/16/17 13:30 36.7 71 16 103/54 (70) 94 Nasal Cannula 2.0 11/16/17 13:15 62 15 101/43 100 Nasal Cannula 3 11/16/17 13:05 59 14 114/41 100 Nasal Cannula 3 11/16/17 13:00 36.2 62 15 111/47 100 Nasal Cannula 3 11/16/17 12:50 36.2 64 15 117/46 100 Nasal Cannula 3 11/16/17 12:40 65 14 117/47 100 Nasal Cannula 3 11/16/17 12:30 67 16 108/46 100 Oxymask 10 11/16/17 12:20 70 16 109/42 100 Oxymask 10 11/16/17 12:13 36.0 68 16 122/34 99 Oxymask 10 11/16/17 08:06 36.6 59 20 133/49 95 Room Air Laboratory Results 24 Hours: Test 11/17/17 05:58 Hematocrit 30.7 % Hemoglobin 10.7 g/dL Additional Notes: Post-op x-rays show no fracture, HW in good position Assessment & Plan Assessment: POD 1 s/p R reverse TSA doing well Plan: Discharge this AM in time for PT appointment at [facility] Planning Pain Management: Oxy IR DVT Prophylaxis: ASA
[2017-11-17 07:46] VITALS: BP 143/48; PULSE 50; TEMP 36.7; O2SAT 96
[2017-11-17] MEDS: CHECK SCOPOLAMINE PATCH PLACEMENT SCH ×2 (08:00)
--- NOTE | 2017-11-17 08:00 | Anesthesiology Progress Note ---
Anesthesia Post Op Note Date & Time November 17, 2017 at 07:59 Vital Signs Pain Intensity: 7.0 Vital Signs Past 12 Hours Date Time Temp Pulse Resp B/P (MAP) Pulse Ox O2 Delivery O2 Flow Rate FiO2 11/17/17 07:46 36.7 50 16 143/48 (79) 96 Room Air 11/17/17 07:15 Room Air 11/17/17 03:17 36.7 56 14 110/59 (76) 98 Room Air 11/16/17 23:50 95 Room Air 2.0 11/16/17 23:01 36.7 66 14 89/52 (64) 95 Room Air Notes Mental Status: alert / awake / arousable, participated in evaluation Pt Amnestic to Procedure: Yes Nausea / Vomiting: adequately controlled Pain: adequately controlled Airway Patency, RR, SpO2: stable & adequate BP & HR: stable & adequate Hydration State: stable & adequate Anesthetic Complications: no major complications apparent
[2017-11-17] MEDS: FERROUS GLUCONATE 324 MG TAB PO SCH (08:55)
[2017-11-17] MEDS: CeleBREX 200 MG CAP PO SCH (08:56)
[2017-11-17] MEDS: DOCUSATE SODIUM 100 MG CAP PO SCH (08:56)
[2017-11-17] MEDS ORDERED: NON-FORMULARY MEDICATION (Lutein 1 TAB) PO SCH (09:00)
[2017-11-17] MEDS ORDERED: MULTIVITAMIN TAB PO SCH (09:00)
[2017-11-17] MEDS ORDERED: PANTOprazole SOD 40 MG TAB PO SCH (09:00)
[2017-11-17 09:19] VITALS: BP 143/48; PULSE 50; TEMP 36.7; O2SAT 96
--- NOTE | 2017-11-17 10:28 | Discharge Summary ---
Orthopedic Discharge Summary Admission Date/Reason November 16, 2017 at 07:50 Right Shoulder Rotator Cuff Arthropathy. Discharge Date/Disposition November 17, 2017 Home (Outpatient PT in our clinic) Diagnosis Principal Diagnosis: Right shoulder Rotator Cuff Arthropathy Procedure(s) Performed Reverse Total Arthroplasty of Right shoulder Medication Reconciliation See H&P for preop meds Discharged with Rx for following meds: 1. Aspirin EC 81 mg 1 tab PO BID x 30 days. 2. Celebrex 200 mg 1 tab PO BID x 30 days. 1 refill 3. Tylenol 500mg 2 tabs PO q8hrs x 30 days. 1 refill 4. Oxycodone 5mg 1-2 tabs PO q 4-6 hrs prn pain. #30 dispensed. Admission Physical Exam As per Admitting History & Physical. Hospital Course Patient admitted for 23 hr Observation stay after reverse Right total shoulder arthroplasty. Doing well this AM. Pain controlled with PO pain meds and ICE. Stay essentially uneventful. Is ready for discharge today and has initial appt at [facility] scheduled for 10:30 AM today. Has 2 wk f/u appointment scheduled. Discharge Instructions Please refer to the electronic Patient Visit Report (Discharge Instructions) for additional information.
== END 2017-11-17 10:26 | disposition home or self-care (01) | DRG 483 ==
LOC: C.ACU 07:24 → OBSVTOIN 07:50 → C.3E 07:50 → ENRESERV 13:08
PROVIDERS: ADMIT Orthopaedic Surgery; ATTEND Orthopaedic Surgery
PROC: 0RRJ00Z Replacement of Right Shoulder Joint with Reverse Ball and Socket Synthetic Substitute, Open Approach (ICD-10-PCS; principal; 2017-11-16 09:30)
DX: M12.811 Other specific arthropathies, not elsewhere classified, right shoulder (principal); D64.9 Anemia, unspecified; M06.9 Rheumatoid arthritis, unspecified; M85.80 Other specified disorders of bone density and structure, unspecified site; D69.6 Thrombocytopenia, unspecified; M65.821 Other synovitis and tenosynovitis, right upper arm

== ENCOUNTER → 2018-02-09 | Outpatient (CLI) | payer OTHER ==
[~2018-02-09] MED LIST changes: -ACETAMINOPHEN 500 MG TAB PO SCH; +ASPI81TA28 PO; -CEFAZOLIN 2000MG IV PUSH 15 ML IV SCH; +CLB/200 PO; -CeleBREX 200 MG CAP PO SCH; -DEXAMETHASONE 4 MG TAB PO SCH; -FAMOTIDINE 20 MG TAB PO SCH; -LACTATED RINGER'S 1000ML 1,000 ML IV SCH; -LACTATED RINGER'S 1000ML IV SCH; -ROPIVACAINE 0.5% 5 MG/ML 30 ML VIAL ONE; -ROPIVACAINE 5MG/ML 30 ML 150 MG, BUPIVACAINE 0.5% MPF INJ 30 ML, EpINEphrine HCL INJ 0.... INFIL SCH; +RXC5 PO; -SCOPOLAMINE 1.5 MG TDSY TD SCH; -TRAMADOL HCL 50 MG TAB PO SCH; -[UNRECOGNIZED DRUG - OTHER] SCH
== END | disposition home or self-care (01) ==
LOC: C.RDSM 09:47
PROVIDERS: ATTEND Orthopaedic Surgery
DX: T84.84XA Pain due to internal orthopedic prosthetic devices, implants and grafts, initial encounter (principal); Y83.1 Surgical operation with implant of artificial internal device as the cause of abnormal reaction of the patient, or of later complication, without mention of misadventure at the time of the procedure; Z96.611 Presence of right artificial shoulder joint

== ENCOUNTER 2024-01-12 15:30 | Inpatient (IN) ==
--- NOTE | 2024-01-12 16:46 | XRay Report ---
XR chest 1V portable CLINICAL HISTORY: Dyspnea. COMPARISON STUDY: Chest CT March 09, 2022. FINDINGS: Right shoulder arthroplasty is incidentally noted. There is no pneumothorax or pleural effu anisha. Cardiomediastinal silhouette is stable. Nodular opacities within the bilateral mid and lower oralia ngs are noted. IMPRESSION: Nodular bilateral mid and lower lung airspace opacities. The findings favor an infectious process. Radiographic follow-up to ensure resolution is recommended. ACT 112: Negative or not required by law. Electronically signed by: Jr Garcia M.D. 01/12/2024 4:44 PM
[2024-01-12 16:52] LABS: Albumin Globulin Ratio 1.4 (0.9-2); Albumin Level 4.1 gm/dl (3.4-5.0); BUN Creatinine Ratio 31.6 (10-20); Bilirubin,Total 2.6 mg/dl (0.2-1.0); Calcium 10.1 mg/dl (8.6-10.3); Creatinine Clr Calc Pharmacy 67.4 ml/min; Est GFR (African American) 105.8 ml/min; Est GFR (Non-African American) 91.3 ml/min; Potassium 4.1 mmol/L (3.5-5.1); Total Protein 7.1 gm/dl (6.0-8.3)
--- NOTE | 2024-01-12 16:59 | Emergency Department Note ---
Impression & Plan Hypoxia, Sepsis, Pneumonia, Leukopenia ED Provider Note NAME: REDD SIMMONS AGE: 73 SEX: F : 1950 ARRIVES VIA: Ambulance INFORMANT: Patient ED PROVIDER(S): Slick Nath DO CHIEF COMPLAINT: Cough, shortness of breath HPI: Patient is a 73-year-old female with a past medical history of B-cell lymphoma, multiple pulmonary nodules who presents the ER for cough congestion shortness of breath. Everything started on Monday. Admits to fevers of 101. She notes that she is also lost her voice. Denies any belly pain nausea vomiting or diarrhea. She does have some intermittent pain with breathing and coughing. She notes her whole chest is sore. Denies any dysuria urgency or frequency. No other exacerbating or remitting factors. ADDITIONAL HISTORY OBTAINED: Per HPI Chronic Medical/Social Conditions Affecting Care: Per HPI PAST MEDICAL HISTORY:See Below PAST SURGICAL HISTORY:See Below FAMILY HISTORY:See Below SOCIAL HISTORY:See Below HOME MEDICATIONS:See Below ALLERGIES:See Below VITALS:See Below PHYSICAL EXAMINATION: GENERAL: Sitting up in bed, alert, slightly ill-appearing, disheveled, persistent cough EYE EXAM: normal conjunctiva. PERRL and EOM's grossly intact. OROPHARYNX: no exudate, no erythema, lips, buccal mucosa, and tongue normal and mucous membranes are moist NECK: supple, no nuchal rigidity, no adenopathy, non-tender LUNGS: Clear to auscultation. Normal chest wall mechanics HEART: no murmurs, S1 normal and S2 normal ABDOMEN: abdomen soft, non-tender, normo-active bowel sounds, no masses, no rebound or guarding. UPPER EXTREMITIES: upper extremities are grossly normal. LOWER EXTREMITIES: No pitting edema. NEURO EXAM: Normal sensorium, cranial nerves II-XII grossly intact, normal speech, no gross weakness of arms, no gross weakness of legs. MEDICAL DECISION MAKING: Patient is a 73-year-old female who presents ER for the above-stated complaint. IV was established blood work is obtained. Labs show mild leukopenia 3.9 thousand. Mild anemia at 11. Thrombocytopenia at 128. BMP is fairly unremarkable. LFTs bilirubin mag was normal. Troponin was negative. Pro-Ankit 0.21. Viral panel was negative. Chest x-ray suggestive of infiltrates in the lower lung vasquez. Patient was hypoxic and given IV antibiotics including Rocephin and azithromycin IV fluids. She was updated bedside. Remained on 2 L nasal cannula throughout her stay in the ER and was admitted for further workup as she was febrile tachycardic and hypoxic. Consults/Care Managements Discussions: Per [facility] Triage Nursing notes reviewed. Limited review of prior medical records performed Vital Signs: reviewed and remarkable for hypertensive, febrile and hypoxic Differential diagnosis: Differential diagnosis includes etiologies such as sepsis, UTI, pneumonia, metabolic, electrolyte abnormalities, cardiac sources, intracerebral event, toxicologic, neurological, as well as others were entertained. ER treatment provided: See below Diagnostics interpreted by me include EKG and cardiac monitoring as listed below: -Cardiac Monitoring: An order was placed for continuous cardiac monitoring. The monitor shows a rate of 80 with sinus rhythm. -ECG: Sinus rhythm rate 82 Normal axis No PVCs QTc 425 -Laboratory studies:Interpreted by me as stated above in MDM and shown below. Imaging studies: Xrays: As interpreted by me: Portable AP upright 1 view of the chest shows infiltrates in the lower lobes CTs show: None Procedures: None Critical Care: I have personally spent 35 minutes of critical care time in the direct management of this patient. This includes bedside care, interpretation of diagnostic studies, and testing, discussion with consultants, patient, and family members, and other required patient management activities. This 35 minutes is in excess of all separately billable procedures. Past Med/Surg History Problem List Leukopenia (Acute) Pneumonia (Acute) Sepsis (Acute) Aspiration into respiratory tract Chest pain Pneumonia Hypoxia (Acute) B-cell lymphoma Urinary frequency Multiple pulmonary nodules Abnormal CT scan of lung Hematuria, microscopic S/P wisdom tooth extraction S/P tendon repair S/P laser cataract surgery S/P tubal ligation Arthritis, rheumatoid Status post reverse total arthroplasty of right shoulder Family History Grandfather (Paternal) Diabetes Heart disease Father Lung cancer Mother Hypertension Other Cancer Social History Smoking Status: Never smoker Hx Alcohol Use: No Preferred Language: [place] Communication Ability: Effective marital status: current occupational status: retired Feels Safe at Home: Yes Allergies Allergies Allergy/AdvReac Type Severity Reaction Status Date / Time gold sodium thiomalate AdvReac Intermediate SORES IN Verified 01/12/24 17:30 MOUTH Home Meds Home Medications Medication Instructions Recorded Confirmed acetaminophen 650 mg 650 mg PO TID PRN Pain 04/08/22 01/12/24 tablet,extended release (Tylenol Arthritis Pain) docusate sodium 100 mg tablet 100 mg PO BID 03/31/23 01/12/24 alendronate 70 mg tablet 70 mg PO WE 01/12/24 01/12/24 cholecalciferol (vitamin D3) 25 25 mcg PO BID 01/12/24 01/12/24 mcg (1,000 unit) tablet (Vitamin D3) etodolac 400 mg tablet 400 mg PO BID 01/12/24 01/12/24 folic acid 1 mg tablet 1 mg PO DAILY 01/12/24 01/12/24 lutein 20 mg tablet 20 mg PO DAILY 01/12/24 01/12/24 Results & Data (ED) Vital Signs Vital Signs - 24 hr 01/12/24 14:55 01/12/24 15:21 01/12/24 15:21 Temperature 38.8 C H Temperature Source Oral Pulse Rate 79 Pulse Rate from SpO2 Sensor Respiratory Rate 22 Respiratory Effort / Characteristics Labored Labored Respiratory Depth Normal Normal Respiratory Pattern Regular Blood Pressure 153/58 H Blood Pressure Mean 89 Pulse Oximetry 100 89 L Oxygen Delivery Method Nasal Cannula Nasal Cannula Room Air Oxygen Flow Rate 2 2 0 Sepsis Recent Fever Within 48 Hours Yes Sepsis New/Unexplained Change in Mental Status No Sepsis Action Taken by Nursing Physician Notified Oxygen Flow Rate - Titration 2 Pulse Oximetry Post Tiitration 99 01/12/24 15:35 01/12/24 15:35 01/12/24 15:35 Temperature Temperature Source Pulse Rate Pulse Rate from SpO2 Sensor Respiratory Rate Respiratory Effort / Characteristics Respiratory Depth Respiratory Pattern Blood Pressure 153/58 H 153/58 H 153/58 H Blood Pressure Mean 94 94 94 Pulse Oximetry Oxygen Delivery Method Oxygen Flow Rate Sepsis Recent Fever Within 48 Hours Sepsis New/Unexplained Change in Mental Status Sepsis Action Taken by Nursing Oxygen Flow Rate - Titration Pulse Oximetry Post Tiitration 01/12/24 15:36 01/12/24 16:00 01/12/24 16:09 Temperature Temperature Source Pulse Rate 83 80 80 Pulse Rate from SpO2 Sensor 83 81 Respiratory Rate 25 H 23 22 Respiratory Effort / Characteristics Respiratory Depth Respiratory Pattern Blood Pressure Blood Pressure Mean Pulse Oximetry 91 100 89 L Oxygen Delivery Method Room Air Oxygen Flow Rate Sepsis Recent Fever Within 48 Hours Sepsis New/Unexplained Change in Mental Status Sepsis Action Taken by Nursing Oxygen Flow Rate - Titration Pulse Oximetry Post Tiitration 01/12/24 16:16 01/12/24 16:33 01/12/24 17:03 Temperature Temperature Source Pulse Rate 77 77 81 Pulse Rate from SpO2 Sensor 78 81 Respiratory Rate 21 22 Respiratory Effort / Characteristics Respiratory Depth Respiratory Pattern Blood Pressure Blood Pressure Mean Pulse Oximetry 98 96 Oxygen Delivery Method Oxygen Flow Rate Sepsis Recent Fever Within 48 Hours Sepsis New/Unexplained Change in Mental Status Sepsis Action Taken by Nursing Oxygen Flow Rate - Titration Pulse Oximetry Post Tiitration 01/12/24 17:36 01/12/24 18:03 Temperature Temperature Source Pulse Rate 84 82 Pulse Rate from SpO2 Sensor Respiratory Rate 34 H 19 Respiratory Effort / Characteristics Respiratory Depth Respiratory Pattern Blood Pressure Blood Pressure Mean Pulse Oximetry Oxygen Delivery Method Oxygen Flow Rate Sepsis Recent Fever Within 48 Hours Sepsis New/Unexplained Change in Mental Status Sepsis Action Taken by Nursing Oxygen Flow Rate - Titration Pulse Oximetry Post Tiitration Laboratory Data 01/12/24 15:41 01/12/24 15:41 Lab Results 01/12/24 01/12/24 Range/Units 15:41 17:35 WBC 3.95 L (4.8-10.8) K/ul RBC 3.84 L (4.20-5.40) M/uL Hgb 11.8 L (12.0-16.0) g/dl Hct 35.1 L (37.0-47.0) % MCV 91.4 (80.0-100.0) fL MCH 30.7 (25.0-34.0) pg MCHC 33.6 (32.0-36.0) g/dL RDW Std Deviation 52.8 H (36.4-46.3) fL RDW Coeff of Latrice 15.9 H (11.5-14.5) % Plt Count 128 L (130-400) K/uL MPV 9.8 (9.4-12.4) fL Immature Gran % (Auto) 0.3 % Neut % (Auto) 60.5 % Lymph % (Auto) 23.3 % Lamar % (Auto) 14.4 % Eos % (Auto) 1.0 % Baso % (Auto) 0.5 % Neut # (Auto) 2.39 (1.40-6.50) K/uL Lymph # (Auto) 0.92 L (1.20-3.40) K/uL Lamar # (Auto) 0.57 (0.11-0.59) K/uL Eos # (Auto) 0.04 (0.00-0.50) K/uL Baso # (Auto) 0.02 (0.00-0.20) K/uL Immature Gran # (Auto) 0.01 (0.01-0.20) K/uL Dohle Bodies 2+ Sodium 138 (136-145) mmol/L Potassium 4.1 (3.5-5.1) mmol/L Chloride 103 (98-107) mmol/L Carbon Dioxide 28 (21-32) mmol/L Anion Gap 7 (3-11) BUN 18 (6-23) mg/dl Creatinine 0.57 L (0.6-1.2) mg/dl Est Cr Clr Drug Dosing 67.4 ml/min Est GFR ( Amer) 105.8 ml/min Est GFR (Non-Af Amer) 91.3 ml/min BUN/Creatinine Ratio 31.6 H (10-20) Glucose 117 H (70-99(Fasting)) mg/dl Lactate 0.8 (0.4-2.0) mmol/L Calcium 10.1 (8.6-10.3) mg/dl Magnesium 1.8 (1.7-2.4) mg/dl Total Bilirubin 2.6 H (0.2-1.0) mg/dl AST 30 (13-39) U/L ALT 28 (7-52) U/L Alkaline Phosphatase 84 (34-104) U/L Troponin I High Sens 7.6 (0-14) pg/ml Total Protein 7.1 (6.0-8.3) gm/dl Albumin 4.1 (3.4-5.0) gm/dl Globulin 3.0 (2.5-4.0) gm/dl Albumin/Globulin Ratio 1.4 (0.9-2) Procalcitonin 0.21 (0-0.5) ng/ml Adenovirus (PCR) Not Detected (NotDetected) B. pertussis DNA (PCR) Not Detected (NotDetected) B.parapertussis DNA PCR Not Detected (NotDetected) C. pneumoniae DNA (PCR) Not Detected (NotDetected) Coronavirus OC43 (PCR) Not Detected (NotDetected) Coronavirus HKU1 (PCR) Not Detected (NotDetected) Coronavirus 229E (PCR) Not Detected (NotDetected) SARS-CoV-2 (PCR) Not Detected (NotDetected) Coronavirus NL63 (PCR) Not Detected (NotDetected) Human Metapneumovir PCR Not Detected (NotDetected) Influenza Type A (PCR) Not Detected (NotDetected) Influenza Type B (PCR) Not Detected (NotDetected) M. pneumoniae (PCR) Not Detected (NotDetected) Parainfluenza 1 (PCR) Not Detected (NotDetected) Parainfluenza 2 (PCR) Not Detected (NotDetected) Parainfluenza 3 (PCR) Not Detected (NotDetected) Parainfluenza 4 (PCR) Not Detected (NotDetected) RSV (PCR) Not Detected (NotDetected) Entero/Rhino (PCR) Not Detected (NotDetected) Administered Medications Discontinued Medications Acetaminophen (Acetaminophen 325 Mg Tab) 650 mg PO NOW STA Stop: 01/12/24 16:55 Last Admin: 01/12/24 17:18 Dose: Not Given Documented By: ROOSEVELT Sodium Chloride (Nss) 1,000 mls @ 999 mls/hr IV .Q1H1M ONE Stop: 01/12/24 17:52 Last Infusion: 01/12/24 18:26 Dose: Infused Documented By: Admin: 01/12/24 17:13 Dose: 999 mls/hr Documented By: ROOSEVELT Ceftriaxone Sodium (Rocephin) 2,000 mg in 50 mls @ 100 mls/hr IV NOW STA Stop: 01/12/24 17:21 Last Infusion: 01/12/24 18:26 Dose: Infused Documented By: Admin: 01/12/24 17:13 Dose: 100 mls/hr Documented By: ROOSEVELT Azithromycin 500 mg/ Dextrose 255 mls @ 125 mls/hr IV NOW ONE Stop: 01/12/24 18:54 Last Infusion: 01/12/24 19:37 Dose: Infused Documented By: Admin: 01/12/24 17:34 Dose: 125 mls/hr Documented By: ROOSEVELT Sodium Chloride (Nss) 500 mls @ 999 mls/hr IV .Q31M ONE Stop: 01/12/24 18:42 Last Infusion: 01/12/24 19:26 Dose: Infused Documented By: Admin: 01/12/24 18:55 Dose: 999 mls/hr Documented By: ROOSEVELT Ibuprofen (Ibuprofen 200 Mg Tab) 400 mg PO NOW STA Stop: 01/12/24 16:57 Last Admin: 01/12/24 17:13 Dose: 400 mg Documented By: ROOSEVELT Ioversol (Optiray 320 125ml) 120 ml IV ONCE ONE Stop: 01/12/24 20:43 Last Admin: 01/12/24 20:43 Dose: 120 ml Documented By: LANETTE Imaging Data Radiologist's Impression: Chest X-Ray 01/12/24 16:09 XR chest 1V portable CLINICAL HISTORY: Dyspnea. COMPARISON STUDY: Chest CT March 09, 2022. FINDINGS: Right shoulder arthroplasty is incidentally noted. There is no pneumothorax or pleural effusion. Cardiomediastinal silhouette is stable. Nodular opacities within the bilateral mid and lower lungs are noted. IMPRESSION: Nodular bilateral mid and lower lung airspace opacities. The findings favor an infectious process. Radiographic follow-up to ensure resolution is recommended. ACT 112: Negative or not required by law. Electronically signed by: Jr Garcia M.D. 01/12/2024 4:44 PM Discharge Plan Visit Data Chief Complaint: Chest Pain Stated Complaint: CHEST PAIN, COVID + ED Provider: Slick Nath Discharge Problem: Hypoxia, Sepsis, Pneumonia, Leukopenia Patient Disposition: Admitted As Inpatient Discharge Instructions Interventions: ED Discharge Assessment Last Done: 01/12/24 20:41 Discharge Problem: Sepsis Qualifiers: Sepsis type: sepsis due to unspecified organism Sepsis acute organ dysfunction status: unspecified Qualified Code(s): A41.9 - Sepsis, unspecified organism Pneumonia Qualifiers: Pneumonia type: due to unspecified organism Laterality: unspecified laterality Lung location: unspecified part of lung Qualified Code(s): J18.9 - Pneumonia, unspecified organism Leukopenia Qualifiers: Leukopenia type: unspecified Qualified Code(s): D72.819 - Decreased white blood cell count, unspecified
[2024-01-12 17:13] LABS: Hematocrit (blood only) 35.1 % (37.0-47.0); Hemoglobin 11.8 g/dl (12.0-16.0); Mean Corpuscular Hemoglobin 30.7 pg (25.0-34.0); Mean Corpuscular Hgb Conc 33.6 g/dL (32.0-36.0); Mean Corpuscular Volume 91.4 fL (80.0-100.0); Mean Platelet Volume 9.8 fL (9.4-12.4); Platelet Count 128 K/uL (130-400); RDW Coefficient of Variation 15.9 % (11.5-14.5); RDW Standard Deviation 52.8 fL (36.4-46.3); Red Blood Count 3.84 M/uL (4.20-5.40); White Blood Count 3.95 K/ul (4.8-10.8)
[2024-01-12] MEDS: IBUPROFEN 200 MG TAB PO STA (17:13)
[2024-01-12] MEDS: cefTRIAXone SODIUM 2,000 MG/50 ML BAG IV STA (17:13)
[2024-01-12] MEDS: SODIUM CHLORIDE 0.9% 1,000 ML IV ONE (17:13)
[2024-01-12] MEDS: ACETAMINOPHEN 325 MG TAB PO STA (17:18)
[2024-01-12 17:23] LABS: Troponin I High Sensitivity 7.6 pg/ml (0-14)
[2024-01-12] MEDS: AZITHROMYCIN 500 MG in DEXTROSE 5% 250 ML IV ONE (17:34)
[2024-01-12 17:37] LABS: Basophils # (auto) 0.02 K/uL (0.00-0.20); Basophils % (auto) 0.5 %; Dohle Bodies 2+; Eosinophils # (auto) 0.04 K/uL (0.00-0.50); Immature Granulocytes # (auto) 0.01 K/uL (0.01-0.20); Immature Granulocytes % (auto) 0.3 %; Lymphocytes # (auto) 0.92 K/uL (1.20-3.40); Lymphocytes % (auto) 23.3 %; Monocytes # (auto) 0.57 K/uL (0.11-0.59); Monocytes % (auto) 14.4 %; Neutrophils # (auto) 2.39 K/uL (1.40-6.50); Neutrophils % (auto) 60.5 %
[2024-01-12 17:56] LABS: Adenovirus PCR Not Detected (NotDetected); Bordetella parapertussis PCR Not Detected (NotDetected); Bordetella pertussis PCR Not Detected (NotDetected); Chlamydia pneumoniae PCR Not Detected (NotDetected); Coronavirus 229E PCR Not Detected (NotDetected); Coronavirus CoV-2 (COVID19)PCR Not Detected (NotDetected); Coronavirus HKU1 PCR Not Detected (NotDetected); Coronavirus NL63 PCR Not Detected (NotDetected); Coronavirus OC43PCR Not Detected (NotDetected); Human Metapneumovirus PCR Not Detected (NotDetected); Influenza A PCR Not Detected (NotDetected); Influenza B PCR Not Detected (NotDetected); Mycoplasma pneumoniae PCR Not Detected (NotDetected); Parainfluenza Virus 1 PCR Not Detected (NotDetected); Parainfluenza Virus 2 PCR Not Detected (NotDetected); Parainfluenza Virus 3 PCR Not Detected (NotDetected); Parainfluenza Virus 4 PCR Not Detected (NotDetected); Respiratory Syncytial VirusPCR Not Detected (NotDetected); Rhinovirus/Enterovirus PCR Not Detected (NotDetected)
--- NOTE | 2024-01-12 18:08 | History & Physical Report ---
Date of Service January 12, 2024 Assessment & Plan (1) Hypoxia: Plan: Admit to med/tele on pulse oximetry Currently stable on 2 L nasal cannula and otherwise stable Was sent to the ED today from urgent care after being found to be hypoxic and experiencing chest pain in the bilateral ribs with coughing Noted to be hypoxic at 89% on room air at the time of arrival and febrile at 38.8 C Found to have bilateral mid and lower lung space opacities favoring an inf ectious process Status post ceftriaxone, azithromycin, 1 L normal saline, 650 mg p.o. Tylenol, and 400 mg p.o. ibuprofen Will continue with ceftriaxone and azithromycin for now Will obtain sputum culture with Gram stain and MRSA swab for further evaluation Follow blood cultures obtained in the ED Will give an additional 500 mL NSS at the time of admission Incentive spirometry, flutter therapy, as needed albuterol, as needed O2 to keep SpO2 at or above 92% SQ Lovenox for DVT prophylaxis Heart healthy diet with easy to chew texture and aspiration precautions AM CBC, CMP, mag, PT/INR (2) Pneumonia: Plan: See hypoxia Patient will need radiographic follow-up to ensure resolution (3) Chest pain: Plan: Has been experiencing chest pain with cough over the past 48 hours Pain is currently resolved No acute ST segment or T wave changes on EKG, high-sensitivity troponins are within normal limits Likely due to to a combination of her lower lobe pneumonia and musculoskeletal pain from recurrent coughing Continue as needed Tylenol Will order as needed antitussive (4) Aspiration into respiratory tract: Plan: Patient experiences esophageal spasms and difficulty swallowing with cold liquids primarily Will obtain speech therapy consult for evaluation Start aspiration precautions for now with easy to chew diet If patient is not improving on ceftriaxone and azithromycin can escalate antibiotic coverage (5) B-cell lymphoma: Plan: Diagnosed with low-grade B-cell lymphoma approximately 3 years ago [facility], has never required treatment and has been in observation Monitor daily CBC Plan The patient was discussed with Dr. Araujo at the time of the admission History of Present Illness Chief Complaint: Chest pain, SOB Primary Care Provider: Karen Raymond DO Zahira is a 73-year-old female with a past medical history significant for r heumatoid arthritis, low-grade B-cell lymphoma (currently in observation), thrombocytopenia, who presented to the [facility] ED via EMS from an acute care clinic due to complaints of chest pain and shortness of breath. On arrival to the ED she was noted to be hypoxic at 89% on room air, febrile at 38.8 C, but otherwise stable. Labs were significant for a white blood cell count of 3.95, stable platelet count of 128, high-sensitivity troponin and procalcitonin within normal limits, and full respiratory bio fire negative. Chest x-ray was read as nodular bilateral mid and lower lung airspace opacities. The findings favor an infectious process, radiographic follow-up to ensure resolution is recommended. Prior to admission the patient was given a dose of ceftriaxone, azithromycin, 650 mg acetaminophen, 400 mg ibuprofen, and 1 L normal saline. Patient was sitting in bed in no acute distress at the time of the exam with her sitting bedside, history was obtained from both. They explained that the patient initially started to develop a sore throat on 01/09/2024. Over the next few days she started to develop increased shortness of breath, a productive cough, and bilateral lower rib pain exacerbated with cough.She had a fever of 101F on 01/11/2024. When asked about a history of aspiration, she states that when she drinks cold liquids she feels as though she gets esophageal spasms and can aspirate at times. She has never had a swallow evaluation. She denies a history of swallowing solid foods. She presented to the urgent care clinic today and was then sent to the ED due to hypoxia. She confirms that she does not have a previous history of pneumonia, has never received treatment for her lymphoma (diagnosis was 3 years ago), and was taken off of her previous methotrexate after she received her diagnosis of lymphoma. She is currently not on immunosuppressive therapy for her rheumatoid arthritis. Her symptoms are moderately improved compared to arrival, her chest pain has resolved. We discussed CODE STATUS, she is a full code and her daughter is her primary decision maker with her as her secondary decision maker. Please refer to Dr. Araujo's attestation for any changes to the treatment plan Allergies Allergy/AdvReac Type Severity Reaction Status Date / Time gold sodium thiomalate AdvReac Intermediate SORES IN Verified 01/12/24 17:30 MOUTH Home Medications Medication Instructions Recorded Confirmed Type acetaminophen 650 mg 650 mg PO TID PRN Pain 04/08/22 01/12/24 History tablet,extended release (Tylenol Arthritis Pain) docusate sodium 100 mg tablet 100 mg PO BID 03/31/23 01/12/24 History alendronate 70 mg tablet 70 mg PO WE 01/12/24 01/12/24 History cholecalciferol (vitamin D3) 25 25 mcg PO BID 01/12/24 01/12/24 History mcg (1,000 unit) tablet (Vitamin D3) etodolac 400 mg tablet 400 mg PO BID 01/12/24 01/12/24 History folic acid 1 mg tablet 1 mg PO DAILY 01/12/24 01/12/24 History lutein 20 mg tablet 20 mg PO DAILY 01/12/24 01/12/24 History Past Med/Surg History Problem List Aspiration into respiratory tract Chest pain Pneumonia Hypoxia B-cell lymphoma Urinary frequency Multiple pulmonary nodules Abnormal CT scan of lung Hematuria, microscopic S/P wisdom tooth extraction S/P tendon repair S/P laser cataract surgery S/P tubal ligation Arthritis, rheumatoid Status post reverse total arthroplasty of right shoulder Family History Grandfather (Paternal) Diabetes Heart disease Father Lung cancer Mother Hypertension Other Cancer Social History Smoking Status: Never smoker Hx Alcohol Use: No Preferred Language: [place] Communication Ability: Effective marital status: current occupational status: retired Feels Safe at Home: Yes Physical Exam Physical Exam: Physical Exam: General: In no acute distress, stated age, ill but non-toxic appearing HEENT: Normocephalic, atraumatic, no scleral icterus, pupils around round, symmetrical, and reactive to light, moist mucus membranes, trachea midline, no thyromegaly Chest/Pulm: No respiratory distress, symmetrical chest expansion, rhonchi noted in the LLL with scattered expiratory wheezing in all other lung vasquez Cardiac: RRR, no murmurs noted Abdomen: Negative for ascites and bruising, normoactive bowel sounds, soft, non-tender to palpation throughout Musculoskeletal: Symmetrical and without signs of acute trauma, upper and lower extremities with full ROM, no atrophy, spasticity, or flaccidity Extremities: Radial, dorsalis pedis, and posterior tibial pulses are intact and symmetrical, no edema noted in the BL LE's Skin: Warm, dry, no rashes , lesions, or scars noted Neuro: Alert and oriented to person, place, month, year, and president, no focal defects, no tremors noted Psych: No acute distress, calm and cooperative during the exam Results & Data Results & Data Vital Signs (Past 12 Hours) Vital Signs Temp Pulse Resp BP Pulse Ox O2 Del Method O2 Flow Rate 01/12/24 16:16 77 01/12/24 16:09 80 22 89 L Room Air 01/12/24 15:21 89 L Room Air 0 01/12/24 15:21 Nasal Cannula 2 01/12/24 14:55 38.8 C H 79 22 153/58 H 100 Nasal Cannula 2 Laboratory Results Abnormal lab results 01/12/24 Range/Units 15:41 WBC 3.95 L (4.8-10.8) K/ul RBC 3.84 L (4.20-5.40) M/uL Hgb 11.8 L (12.0-16.0) g/dl Hct 35.1 L (37.0-47.0) % RDW Std Deviation 52.8 H (36.4-46.3) fL RDW Coeff of Latrice 15.9 H (11.5-14.5) % Plt Count 128 L (130-400) K/uL Lymph # (Auto) 0.92 L (1.20-3.40) K/uL Creatinine 0.57 L (0.6-1.2) mg/dl BUN/Creatinine Ratio 31.6 H (10-20) Glucose 117 H (70-99(Fasting)) mg/dl Total Bilirubin 2.6 H (0.2-1.0) mg/dl Diagnostic Findings Chest X-Ray 01/12/24 16:09 XR chest 1V portable CLINICAL HISTORY: Dyspnea. COMPARISON STUDY: Chest CT March 09, 2022. FINDINGS: Right shoulder arthroplasty is incidentally noted. There is no pneumo thorax or pleural effusion. Cardiomediastinal silhouette is stable. Nodular opacities within the bilateral mid and lower lungs are noted. IMPRESSION: Nodular bilateral mid and lower lung airspace opacities. The findings favor an infectious process. Radiographic follow-up to ensure resolution is recommended. ACT 112: Negative or not required by law. Electronically signed by: Jr Garcia M.D. 01/12/2024 4:44 PM ECG Additional Comments: Normal sinus rhythm Incomplete right bundle branch block Borderline ECG When compared with ECG of 30-OCT-2017 10:11, Incomplete right bundle branch block is now Present Code Status & VTE Plan VTE Prophylaxis Plan VTE Prophylaxis will be ordered: Yes Supervising Physician Co-Signing Physician Notes Patient was seen and examined, agree with above assessment and plan GENERAL: Sitting up in bed, alert, slightly ill-appearing, disheveled, persistent cough EYE EXAM: normal conjunctiva. PERRL and EOM's grossly intact. OROPHARYNX: no exudate, no erythema, lips, buccal mucosa, and tongue normal and mucous membranes are moist NECK: supple, no nuchal rigidity, no adenopathy, non-tender LUNGS: Clear to auscultation. Normal chest wall mechanics HEART: no murmurs, S1 normal and S2 normal ABDOMEN: abdomen soft, non-tender, normo-active bowel sounds, no masses, no rebound or guarding. BACK: Back is symmetrical on inspection and there is no deformity, no midline tenderness, no CVA tenderness. SKIN: no rashes and no bruising UPPER EXTREMITIES: Has a hands deformities due to rheumatoid arthritis LOWER EXTREMITIES: No pitting edema. NEURO EXAM: Normal sensorium, cranial nerves II-XII grossly intact, normal speech, no gross weakness of arms, no gross weakness of legs. 73-year-old female with history of lymphoma, no treatment, observation for last 3 years, rheumatoid arthritis, currently not treatment presents with fever, cough, pneumonia chest x-ray Blood cultures done in the emergency room Patient started on broad-spectrum antibiotic Will obtain MRSA screen, Legionella Will obtain a CAT scan of the chest, to rule out spread of lymphoma, causing fever If symptoms do not improve would consult hematology oncology PG Care Time/CCT Total # of Minutes Spent Total Time Spent with Patient: Total time spent is greater than 50% in coordination of care (as documented) at patient's floor/unit and/or counseling patient: Coding [place] [address] INT INP/OBS CARE 2/55MIN Patient Type Established Medical Decision Making Moderate Complexity Diagnoses Hypoxia R09.02 Pneumonia J18.9 Chest pain R07.9 Aspiration into respiratory tract T17.908A B-cell lymphoma C85.10
[2024-01-12] MEDS ORDERED: ONDANSETRON INJ 2 MG/ML 2 ML VIAL IV PRN (18:39)
[2024-01-12] MEDS: SODIUM CHLORIDE 0.9% 500 ML IV ONE (18:55)
[2024-01-12] MEDS: OPTIRAY 320 125ml IV ONE (20:43)
--- NOTE | 2024-01-12 21:28 | CT Scan Report ---
CT angio chest PE protocol CLINICAL HISTORY: PE TECHNIQUE: Multidetector row helical CT of the chest was performed with angiographic protocol. Spencer l and sagittal reformations were obtained. Coronal and sagittal MIPS were obtained from the axial melvin a set and were submitted for review. Automated dose lowering techniques and/or adjustment according to patient size were utilized for this exam. CT DOSE: 287.43 mGy.cm Comparison: Comparison is made to chest 03/09/2022 FINDINGS: Lungs and pleura: Multifocal airspace opacities are seen most prominently in the lower lobes. Trace l eft pleural effusion. Heart and pericardium: Heart size is normal. No pericardial effusion. Vessels: No evidence of pulmonary embolism. Mediastinum and phuong: Subcentimeter lymph nodes are seen. Chest wall and lower neck: Right axillary lymph nodes measure up to 11 mm in diameter. Abdomen: A hiatal hernia is seen. Bones: Degenerative changes in the thoracic spine. IMPRESSION: 1. No pulmonary embolus. 2. Multifocal pneumonia with reactive mediastinal lymphadenopathy. Right axillary lymph nodes are en larged, possibly reactive as well. Follow-up to resolution is recommended. 3. Trace left pleural effusion. ACT 112: Negative or not required by law. Electronically signed by: Albert Handley M.D. 01/12/2024 9:26 PM
[2024-01-12] MEDS: PANTOprazole 40 MG TAB PO STA (22:13)
[2024-01-12] MEDS: ACETAMINOPHEN 325 MG TAB PO PRN (22:13)
[2024-01-12] MEDS: DOCUSATE SODIUM 100 MG CAP PO SCH (22:13)
[2024-01-12] MEDS: guaiFENesin SUGAR FREE 200 MG/10 ML UDC PO PRN (22:17)
[2024-01-12] MEDS: ENOXAPARIN INJ 40 MG/0.4 ML SYR SQ SCH (22:49)
[2024-01-12 23:51] LABS: Appearance Urine Clear (Clear); Bacteria Urine Automated None Seen (None Seen); Bilirubin Urine Negative (Negative); Blood Urine 1+ (Negative); Cast Urine Automated 0-2 /lpf (0-2); Color Urine Yellow; Epithelial Cell Urine Auto 0-2 /hpf (0-2); Glucose Urine UA 1+ (Negative); Ketones Urine Trace (Negative); Leukocyte Esterase Urine Negative (Negative); Nitrite Urine Negative (Negative); Protein Urine 1+ (Negative); Specific Gravity Urine > 1.045 (1.000-1.030); Urobilinogen Urine Negative (Negative); WBC Urine Automated 0-5 /hpf (0-5)
[2024-01-13] MEDS: ALBUTEROL 0.5% NEB SOLN 2.5 MG/0.5 ML VIAL NEB SCH ×2 (00:18→12:25)
--- OUTSIDE RECORDS SUMMARY | 2024-01-13 01:21 | External Medical Summary ---
Author Name Unknown Address Unknown Organization K09:[facility] [place] [address] Laboratory Report Ordering Provider Test Date Status SHERYL RAMOS 12/28/2023 08:56:32 Final Observation Date Value Abnormality Reference (Units ) Status Nucleated erythrocytes/100 leukocytes [Ratio] in Blood by Automated count 12/28/2023 08:56:32 Final Variant lymphocytes [Presence] in Blood by Light microscopy 12/28/2023 08:56:32 Present Abnormal None Seen Final Performing Location [facility] [address]
--- OUTSIDE RECORDS SUMMARY | 2024-01-13 01:21 | External Medical Summary ---
Author Name Unknown Address Unknown Organization K09:[facility] [address] [place] [address] Laboratory Report Ordering Provider Test Date Status SHERYL RAMOS 12/28/2023 08:56:32 Final Observation Date Value Abnormality Reference (Units ) Status BUN 12/28/2023 08:56:32 19 6-20 (mg/dL) Final Creatinine 12/28/2023 08:56:32 0.7 0.5-1.0 (mg/dL) Final Glomerular filtration rate/1.73 sq M.predicted [Volume Rate/Area] in Serum, Plasma or Blood by Creatinine-based formula (CKD-EPI) 12/28/2023 08:56:32 >90 >=60 (mL/min) Final eGFR is calculated based on the CKD-EPI 2020 equation Sodium 12/28/2023 08:56:32 139 135-146 (m mol/L) Final Potassium 12/28/2023 08:56:32 4.4 3.5-5.1 (m mol/L) Final Cl 12/28/2023 08:56:32 104 98-107 (mm ol/L) Final CO2 12/28/2023 08:56:32 27 22-32 (mmo l/L) Final Anion gap 12/28/2023 08:56:32 8 7-15 (mmol /L) Final Glucose 12/28/2023 08:56:32 95 70-120 (mg /dL) Final Albumin 12/28/2023 08:56:32 4.1 3.8-5.0 (g /dL) Final AST (Aspartate aminotransferase) 12/28/2023 08:56:32 31 10-35 (U/L) Final Alk Phos 12/28/2023 08:56:32 82 35-130 (U/ L) Final Bilirubin, Total 12/28/2023 08:56:32 0.8 <=1 .2 (mg/dL) Final Calcium 12/28/2023 08:56:32 10.1 8.4-10.2 ( mg/dL) Final Protein 12/28/2023 08:56:32 6.7 6.0-8.3 (g /dL) Final ALT (Alanine aminotransferase) 12/28/2023 08:56:32 20 10-35 (U/L) Final Performing Location [facility] [address] [place] [address]
--- OUTSIDE RECORDS SUMMARY | 2024-01-13 01:21 | External Medical Summary ---
Author Name Unknown Address Unknown Organization K01:[facility] [address] [place] [address] Laboratory Report Ordering Provider Test Date Status RACHELSHERYL 12/28/2023 08:56:32 Final Observation Date Value Abnormality Reference (Units ) Status LDH 12/28/2023 08:56:32 410 Above high normal <= 250 (U/L) Final Result may be falsely elevat ed due to hemolysis. Performing Location [facility] [address] [place] [address]
--- OUTSIDE RECORDS SUMMARY | 2024-01-13 01:21 | External Medical Summary ---
Author Name Unknown Address Unknown Organization K09:[facility] [place] [address] Laboratory Report Ordering Provider Test Date Status SHERYL RAMOS 12/28/2023 08:56:32 Final Observation Date Value Abnormality Reference (Units ) Status SYNC LEUKOCYTES IN BLOOD BY AUTOMATED COUNT 12/28/2023 08:56:32 4.24 4.00-10.80 (K/uL) Final Segs 12/28/2023 08:56:32 40.3 40.0-75.0 (%) Final Lymphs % 12/28/2023 08:56:32 36.6 18.0-42.0 (%) Final Monos 12/28/2023 08:56:32 20.0 Above high normal 1.0-11.0 (%) Final Eosinophils 12/28/2023 08:56:32 2.4 0.0-6.0 (%) Final Basos 12/28/2023 08:56:32 0.7 0.0-2.0 (%) Final Absolute Segs 12/28/2023 08:56:32 1.71 Below low normal 1.80-7.70 (K/uL) Final Lymphs, absolute 12/28/2023 08:56:32 1.55 1.00-4.80 (K/ul) Final Monos, Abs 12/28/2023 08:56:32 0.85 0.00-1.10 (K/uL) Final Eos, Abs 12/28/2023 08:56:32 0.10 0.00-0.70 (K/uL) Final Basos, Abs 12/28/2023 08:56:32 0.03 0.00-0.20 (K/uL) Final Performing Location [facility] [place] [address]
--- OUTSIDE RECORDS SUMMARY | 2024-01-13 01:21 | External Medical Summary ---
Author Name Unknown Address Unknown Organization K09:[facility] [place] [address] Laboratory Report Ordering Provider Test Date Status SHERYL RAMOS 12/28/2023 08:56:32 Final Observation Date Value Abnormality Reference (Units ) Status WBC, Total 12/28/2023 08:56:32 4.24 4.00-10.8 0 (K/uL) Final RBC 12/28/2023 08:56:32 3.92 3.85-5.15 (M/uL) Final Hemoglobin 12/28/2023 08:56:32 12.0 12.0-15.3 (g/dL) Final HCT 12/28/2023 08:56:32 37.3 36.0-45.2 (%) Final MCV 12/28/2023 08:56:32 95.2 81.5-97.5 (fL) Final MCH 12/28/2023 08:56:32 30.6 27.0-34.0 (pg) Final MCHC 12/28/2023 08:56:32 32.2 32.0-36.0 (g/dL) Final RDW 12/28/2023 08:56:32 15.7 11.5-15.5 (%) Final Platelets 12/28/2023 08:56:32 110 Below low normal 140 -400 (K/uL) Final MPV 12/28/2023 08:56:32 9.6 6.6-11.1 ( fL) Final Performing Location [facility] [place] [address]
--- OUTSIDE RECORDS SUMMARY | 2024-01-13 01:22 | External Medical Summary | Continuity of Care Document ---
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 Role Phone Karen Raymond Primary Care Physicia n [phone] [id number] Date[facility]s): 10/09/23 - 10/09/23 [facility] [address], [address] [place] [address] [phone] Encounter Diagnosis Pulmonary hypertension(Discharge Diagnosis) - 10/09/23 Hypotension(Discharge Diagnosis) - 10/09/23 Discharge Disposition: Home or Self Care Attending Physician: SAMUEL Martin Sarah A Referring Physician: DO Raymond Gretchen Elizabeth Allergies, Adverse Reactions, Alerts Substance Reaction Severity Status Allergy Not found in Search 1 sores in mouth Active 1Gold Assessment and Plan Extracted from: Title:Cardiology Office Visit Note Author:SAMUEL Garcia rd, Sarah A Date:10/09/23 Impression: 1. Hypotension 2. Mild pulmonary hypertension 3. B cell lymphoma 4. RA Ms. Simmons's blood pressures are running on the low side of normal but she is no longer having symptoms now that she is drinking more water and has liberalized her salt intake. She is struggling a little better to get her compression stockings on with her RA deformity in her fingers and the zipper ones are no better. If her symptoms become worse we could consider medications to bring her blood pressure up but I don't think it's necessary at this time. She did have mild pulmonary hypertension on her 2021 echo, I will have her repeat it. She will return to the clinic [id number]. Immunizations Given and Recorded Vaccine Date Status Refusal Reason influenza virus vaccine, inactivated 04/23/21 Cordell rded influenza virus vaccine, inactivated 04/17/18 Cordell rded influenza virus vaccine, inactivated 05/03/17 Give n influenza virus vaccine, inactivated 04/26/16 Give n influenza virus vaccine, inactivated 04/22/15 Give n influenza virus vaccine, inactivated 03/27/14 Cordell rded influenza virus vaccine, inactivated 06/05/13 Give n SARS-CoV-2 (COVID-19) mRNA-1273 vaccine 1 09/29/20 Recorded SARS-CoV-2 (COVID-19) mRNA-1273 vaccine 09/01/20 G iven pneumococcal 23-valent vaccine 08/21/19 Given pneumococcal 23-valent vaccine 2 11/14/06 Recorded pneumococcal 23-valent vaccine 07/17/06 Recorded pneumococcal 23-valent vaccine 3 07/17/06 Recorded pneumococcal 23-valent vaccine 4 07/17/01 Recorded tetanus/diphtheria/pertuss, acel (Tdap) 08/21/19 G iven tetanus/diphtheria/pertuss, acel (Tdap) 06/03/09 R ecorded pneumococcal 13-valent vaccine 04/22/15 Given pneumococcal 13-valent vaccine 5 04/16/15 Recorded measles/mumps/rubella/varicella vaccine 06/02/09 R ecorded 1Result Comment: 2021-04-26: Historical information-source unspecified 2Result Comment: 2021-04-26: Historical information-source unspecified 3Result Comment: 2021-04-26: Historical information-source unspecified 4Result Comment: 2021-04-26: Historical information-source unspecified 5Result Comment: 2021-04-26: Historical information-source unspecified Medications amoxicillin 500 mg oral capsule Start: 01/29/18 11:41:58 EDT, 4 cap, PO, As indicated, Disp# 12 cap, Refills: 3, one hour before dental and other procedures as directed, Pharmacy: [facility]/pharmacy #[id number] Start Date: 01/29/18 Status: Ordered Colace 100 mg oral capsule Start: 10/04/19 15:31:00 EDT, 1 cap, PO, bid Start Date: 10/04/19 Status: Ordered etodolac 400 mg oral tablet Start: 12/02/11 8:36:00 EDT, 1 tab, PO, bid, PRN: as needed for pain Start Date: 12/02/11 Status: Ordered folic acid Start: 03/06/19 9:18:00 EDT, 1 mg =, PO, Daily Start Date: 03/06/19 Status: Ordered Fosamax 70 mg oral tablet Start: 03/06/19 9:18:00 EDT, 1 tab, PO, q7days Start Date: 03/06/19 Status: Ordered Lutein 20 mg oral tablet Start: 12/02/11 8:34:00, 1 tab, PO, Daily Start Date: 12/02/11 Status: Ordered triamcinolone 0.1% topical cream Start: 09/07/23 10:51:00 EST, 1 appl, topical, bid, Disp# 30 g, Refills: 3, Apply to affected areason trunk and extremities up to twice daily as needed for itch/rash, Pharmacy: [facility]/pharmacy #[id number] Start Date: 09/07/23 Stop Date: 01/05/24 Status: Ordered Tylenol Start: 09/15/17 12:52:00 EST, 325 mg =, PO, qid, PRN: as needed for pain Start Date: 09/15/17 Status: Ordered Mental Status 10/09/23 Barriers to Learning one year None evide nt Mandatory Health Literacy Documentation Yes Health Literacy Communication Barriers N ever Primary Language [place] Problem List Condition Confirmation Course Effective Dates Status H ealth Status Informant Atrophic vaginitis Confirmed Active B-cell lymphoma Confirmed Active Hematuria 1, 2 Confirmed 04/22/20 Active Cannot hear Confirmed Active Arthropathy of right shoulder Confirmed Active S/p reverse total shoulder arthroplasty Confirmed Active Hearing loss Confirmed Active Leukopenia Confirmed Active Hypotension Confirmed Active Multiple nodules of lung 3, 4 Confirmed 03/14/19 Active Pulmonary nodules Confirmed Active Osteopenia 5 Confirmed Active Thrombocytopenia 6 Confirmed Active Post menopausal problems Confirmed Active RHEUMATOID ARTHRITIS 7 Confirmed Active Fibroid, uterine 8 Confirmed Active Weight disorder Confirmed Active 1had cystoscopy, he removed a couple small lesions - benign. 2saw Dr. Sergio Chadwick, [place]rolog[place] [facility] [place] 3Sees Dr. rCescencio Hardy, inverter and clipper at [facility] [place]. 4multiple lung nodules up to 4mm noted in abd/pelvis CT in 02/2019. 5sees rheumatology 6sees Dr. Connor Robb[place] [facility] [place]sees rheumatology 8Pelvis US in 2020: 13mm anterior fundal fibroid. Otherwise unremarkable study. Diagnosis Diagnosis Type Effective Dates Health Status Clinical Service Informant Pulmonary hypertension Discharge Diagnosis 10/09/23 Non-Specified Hypotension Discharge Diagnosis 10/09/23 Non-Specified Procedures Procedure Date Related Diagnosis Body Site Status Mammogram - screening 1 06/28/[address] 2 03/09/[address] of chest 3 03/09/22 Completed Diagnostic mammogram with ta rgeted US Left breast 4 01/06/22 Completed Diagnostic mammogram 5 07/05/21 Co mpleted Mammogram - screening 6 06/24/21 C ompleted Lymph node biopsy 11/2020 Complet ed Needle localization Right Breast 7 11/09/[address] of whole body 8 10/22/20 Co mpleted Fine needle aspiration of br east right 9, 10 09/15/20 Completed Ultrasound scan of breast an d axilla 11 09/08/20 Completed Mammogram - screening 12 06/23/20 Completed Ultrasound scan of right breast 13 03/03/[address] of chest 14 02/20/[address] of abdomen and pelvis 15 10/02/19 Completed US - Ultrasound 16 08/30/19 Comple calvin Cytology 17 08/27/19 Completed Mammogram - screening 18 06/18/19 Completed Colonoscopy 19 05/02/19 Completed Abdomen and pelvis 20 03/15/19 Com pleted After-cataract 21 12/2018 Complet ed Screening mammogram of bilat eral breasts 22 06/15/18 Completed Reverse total right shoulder replacement 23 11/17/17 Completed X-ray of cervical spine 24 10/30/17 Completed Shoulder X-ray 25 09/25/17 Complet ed Shoulder X-ray 26 07/25/17 Complet ed Shoulder X-ray-Right 27 07/25/17 C ompleted Mammogram - screening 28 06/13/17 Completed Phacoemulsification with int raocular lens implantation of Right eye 01/26/17 C ompleted Phacoemulsification with int raocular lens implantation 12/22/16 Completed Cataract surgery 2016 Compl eted Mammogram - screening 30 06/06/16 Completed Mammogram - screening 31 06/04/15 Completed Colonoscopy 32 05/08/15 Completed Tenosynovectomy 33 10/17/14 Comple calvin Mammogram - screening 06/03/14 Com pleted Colonoscopy 34 07/04/05 Completed durrach resection - 02/04/2013 Completed Hand surgery service 35 C ompleted teeth extraction Complete d tubal ligation Completed 1There is no mammographic evidence of malignancy. A 1 year screening mammogram is recommended (06/29/2023) 2interval evolutionary changes of previously noted bilateral lower lung predominant tree-in-bud nodules compatible with chronic infectious/inflammatory process. no new suspicious nodules are seen. mucous plugging is noted 3Impression: Interval evolutionary changes of previously noted bilateral lower lung predominant tree-in-bud nodules compatible with chronic infectious/inflammatory process. No new suspicious nodules are seen. Mucous plugging is noted. 4Impression: Small circumscribed anechoic 4 mm mass in the left 6:00 breast on ultrasound is stable compared to the June 2021 exam and is consistent with a benign simple cyst. There is no mammographic or targeted sonographic evidence of malignancy. Return to annual mammogram screening schedule is recommended. (06/25/2022) The patient has been verbally notified of the results. 5There is a small, 3.3 mm probably cyst in the left 6:00 axis, 1 cm from the nipple on US, possibly correlating with the effacing mammographic asymmetry. These findings are probably benign otherwise 6-month close f/u diagnostic tomosynthesis mammogram and repat targeted US is recommended to ensure st ability. These results recommendations were discussed with the patient at the time of the exam. Shetentatively scheduled her next appointment prior to the department. 6There is a small 4 mm asymmetry seen within the left inferior breast on MLO images (slice 20), possibly projecting medially on CC images. Recommend spot compression tomosynthesis views and possible breast US for further evaluatioin, however, this likely represents normal overlapping fibroglandular tissue. The remainder of both breasts are stable compared to prior exams, without suspicious masses, calcifications, or areas of architectural distortion noted. A linear scar marker overlies the right axillary region. IMPRESSION: Left breast asymmetry, for which additional imaging evaluation is recommended. The patient will be called to schedule an appointment. 7Path results are in - A : lymph node, exicisional biopsy: - low grade B-cell lymphoproliferative disorder. see comment. comment: Differential diagnosis included marginal zone lymphoma and lymphoplastic, CD10- negative follicular lymphoma or another atypical low grade B-cell lymphoproliferative disorder. FISH for low grade b-cell lymphoma and MYD88 testing will be prformed and reported as addendums 81. Prominent right supraclavicular left greater than right axillary chain and mildly enlarged mediastinal lymph nodes as above demonstrate minimally increased metabolic activity likely correlating with the patient's diagnosis of lymphoma. 2. The spleen is mildly enlarged and demonstrates slightly elevated metabolic activity compared to the liver, suspcious for lymphomatous involvement. 3. Incidental findings as above. 9Pathology results from fine needler aspirtation biopsy of a prominent right axillary lymph node yielded: a monoclonal population of B lymphocytes is identified on flow cytometric analysis. The Papanicolaou stained ThinPrep reveals a monotonous population of small round lymphocytes lacking tingible body macrophages and lacking large noncleaved lymphocytes and small cleaved lymphacytes. a low gradelymphoma/leukemia cannot be entirely excluded in light of the above findings. surgical excision is advised. The pathology results are concordant with the imaging appearance. Surgical consultation forsurgical excision of a sales utility representative lymph node is recommended. 10status post fine needle aspiration biopsy and clip placement of a sales utility representative prominent right axillary lymph node. the specimen was sent stat to the pathology department for cytologic analysis 11Impression: There are several small right axillary lymph nodes with mildly prominent cortices that may be increased in cortical thickness compared to the previous ultrasound. Would recommend attempting ultrasound-guided fine-needle aspiration and/or core needle bipsy of a sales utility representative lymph node for definitive characterization. This may be technically difficult given decreased right shoulder mobility secondary to prior surgery. Continued clinical follow-up is recommended for the reported right neck lump. Additonal imaging with a neck ultrasound may be useful 12There is no mammographic evidence of malignancy. A 1 year screening mammogram is recommended. 13There are approximately 10 small right axillary lymph nodes with cortical thickness ranging from normal to mildy prominent. These lymph nodes could be reactiveright shoulder surgery although were newly visualized on cross-sectional imaging and are slightly asymmetric comparing to the left axilla. Close f/u imaging with targeted right axillary US is recommended. Alternatively could also perform repeat cross sectionalchest CT in 6 months to assess stability. If there is high clinical concern for a neoplastic process, US guided lymph node sampling could be attempted. 14Impression: Multiple foci of multiobar tree-in-bud nodularity. The findings are statistically infectious/inflammatory Mildly prominent right axillary lumph nodes which are not individually enlarged by size criteria. Suspected splenomegaly. 15Impression: Considerable increase in fecal material throughout the colon and to a greater extent sigmoid. This appearance is consistent with that of generalized fecal statis. No associated rectal fecal impaction. 16IMPRESSION: 13mm anterior fundal fibroid. Otherwise unremarkable study. 17Negative for intraepithelial cells Sparse to no endocervical/metaplstic cells 18Impression: There is no mammographic evidence of malignancy. A 1 year screening mammogram is recommended. (06/18/2020). The patient will receive written notification of the results. 19IMPRESSION: -Non-bleeding internal hemorrhoids -diverticulosis in the sigmoid colon -No specimens collected. 20CT with IV contrast No bowel obstruction or bowel wall thickening Moderate fecal retention Small hiatal hernia Mild urinary bladder wall thickening, correlate with UA 21After cataract surgery - pt. had 2nd treatment 22Impression: There is no mammographic evidence of malignancy. A 1 year screening mammogram is recommended (06/16/2019 The patient will receive written notification of the results. 23Humeral head,right, reverse total shoulder arthroplasty: Degenerative joint disease Chronic synovitis with dystrophic calcification 24Impression: 1. Degenerative change throughout the cervical spine. 2. C1-C2 complex is intact with no evidence for positional subluxation. 3. Grade 1 reversal subluxation C3 on C4 most likely on a degenerative basis. 4. Maximum posterior subluxation of C3 is 2mm in extension and 1.5mm in flexion. 251. Large full-thickness rotator cuff tears as described above. The full- thickness tear through the proimal subscapularis tendon may be subacute. 2. The superior labrum is no tidentified consistent with a tear/maceration. 3. Multiple small intra-articular loos bodies and a moderate joint effusion. 4. Partially torn and medially dislocated proximal long head of the biceps tendon. 5. 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 6. Additional findings as described above. 261. Degenerative change 2. No acute fractures or dislocations 27Degenerative changes No acute fracture or dislocations. 28There is no mammographic evidence of malignancy. A 1 year screening mammogram is recommended. The patient will receive written notification of the results. 29right and left 30Impression: there is no mammographic evience of malignancy. A 1 year screening mammogram is recommended. The patient will receive written notification of the results. 31Impression; There is no mammographic evidence of malignancy. a 1 yr screening mammogarm is recommended. The patient will receive written notification of the results. 32Findings: multiple diverticula were found in the sigmoid colon. Recommendations: Repeat colonoscopy in 10 years for screeening purposes. 33Left darrach, left FDS transfer to EDC of the thrid and forth digit Extensor tenosynovectomy 34Diverticulosis of the sigmoid colon. Grade 3 internal hemorrhoids. 35both hand tendon rupture repair. Vital Signs Most recent to oldest [Reference Range]: 1 Patient Weight 49.3 kg (10/09/23 1:44 PM) Heart Rate 68 bpm (10/09/23 1:44 PM) Respiratory Rate 16 br/min (10/09/23 1:44 PM) Blood Pressure 128/60mmHg (10/09/23 1:44 PM) BP Location # 1 Left Arm (10/09/23 1:44 PM) Social History Social History Type Response Smoking Status Never smoked cigaret william Sex Female Cardiology Outpatient Note * SAMUEL Martin Sarah A: PERFORM, MODIFY Event Display: Cardiology Outpt Note Authored Date: [id number] Primary Care Provider DO Raymond Gretchen Elizabeth Referring Provider DO Raymond Gretchen Elizabeth Chief Complaint low BP - not sleeping - feeling tired . History of Present Illness Ms. Simmons presents for evaluation of orthostatic hypotension. 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 She has been making low sodium foods for him and so eating low sodium as well. With the decrease in sodium intake her blood pressures have been low and she was getting dizzy. Her pcp recommended compression, fluids and liberalizing salt intake which has helped and her dizziness has largely resolve. No falls. Three or four times per week she does a 30 minute [employer] exercise video, often a dancing exercise.No sob or chest discomfort with that. 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 Respiratory: Lungs are clear to auscultation, Respirations are non-labored. Cardiovascular: Normal rate, Regular rhythm, No murmur, No edema, no carotid bruits to auscultation bilaterally. Integumentary: Warm, Dry, [place] Neurologic: Alert, Oriented. Cognition and Speech: Speech clear and coherent. Psychiatric: Cooperative, Appropriate mood & affect. Assessment/Plan Impression: 1. Hypotension 2. Mild pulmonary hypertension 3. B cell lymphoma 4. RA Ms. Simmons'charles blood pressures are running on the low side of normal but she is no longer having symptoms now that she is drinking more water and has liberalized her salt intake. She is struggling a little better to get her compression stockings on with her RA deformity in her fingers and the zipper ones are no better. If her symptoms become worse we could consider medications to bring her blood pressure up but I don't think it's necessary at this time. She did have mild pulmonary hypertension on her 2021 echo, I will have her repeat it. She will return to the clinic [id number]. Problem List/Past Medical History Ongoing Arthropathy of right shoulder Atrophic vaginitis B-cell lymphoma Cannot hear Fibroid, uterine Hearing loss Hematuria Hypotension Leukopenia Multiple nodules of lung Osteopenia Post menopausal problems Pulmonary nodules RHEUMATOID ARTHRITIS S/p reverse total shoulder arthroplasty Thrombocytopenia Weight disorder Historical ANEMIA Benign skin lesion of forehead Constipation Procedure/Surgical History Mammogram - screening| Service Date: 2CT of chest| Service Date: 03/09/2022hest CT| Service Date: 03/09/2022iagnostic mammogram with targeted US Left breast| Service Date: 01/06/2022iagnostic mammogram| Service Date: 07/05/2021Mammogram - screening| Service Date: ymph node biopsy| Service Date: 11/2020Needle localization Right Breast| Service Date: 04/26/2021PET CT of whole body| Service Date: 10/22/2020Fine needle aspiration of breast right|Service Date: 09/15/2020Ultrasound scan of breast and axilla| Service Date: 09/08/2020Mammogram - screening| Service Date: 06/23/2020Ultrasound scan of right breast| Service Date: 03/03/2020CT of chest| Service Date: 02/20/2020CT of abdomen and pelvis| Service Date: 10/02/2019US - Ultrasound| Service Date: 08/30/2019Cytology| Service Date: 08/27/2019Mammogram - screening| Service Date: 06/18/2019Colonoscopy| Service Date: 05/02/2019Abdomen and pelvis| Service Date:03/15/2019After- cataract| Service Date: 12/2018Screening mammogram of bilateral breasts| Service Date: 06/15/2018Reverse total right shoulder replacement| Service Date: 11/17/2017X-ray ofcervical spine| Service Date: 10/30/2017Shoulder X-ray| Service Date: 09/25/2017Shoulder X-ray-Right| Service Date: 07/25/2017Shoulder X-ray| Service Date: 07/25/2017Mammogram - screening| Service Date: 06/13/2017Phacoemulsification with intraocular lens implantation of Right eye| Service Date: 01/26/2017Phacoemulsification with intraocular lens implantation| Service Date: 12/22/2016Cataract surgery| Service Date: 2016Mammogram - screening| Service Date: 06/06/2016Mammogram - screening| Service Date: 06/04/2015Colonoscopy| Service Date: 05/08/2015Tenosynovectomy| Service Date: 10/17/2014Mammogram - screening| Service Date: 06/03/2014Colonoscopy| Service Date: 07/04/2005durrach resection - 02/04/2013teeth extractiontubal ligationHand surgery service Medications acetaminophen(Tylenol), 325 mg, PO, qid, PRN alendronate(Fosamax 70 mg oral tablet), 70 mg= 1 tab, PO, q7days amoxicillin(amoxicillin 500 mg oral capsule), 2000 mg= 4 cap, PO, As indicated, 3 refills docusate(Colace 100 mg oral capsule), 100 mg= 1 cap, PO, bid etodolac(etodolac 400 mg oral tablet), 400 mg= 1 tab, PO, bid, PRN folic acid, 1 mg, PO, Daily lutein(Lutein 20 mg oral tablet), 20 mg= 1 tab, PO, Daily triamcinolone topical(triamcinolone 0.1% topical cream), 1 appl, topical, bid, 3 refills Allergies Allergy Not found in Searchsores in mouth Social History Smoking Status Never smoked cigarettes Alcohol - Denies Alcohol Use Employment/School Status:Retired Exercise - Regular exercise Times per week:1-2 times/week Exercise type:Aerobics, Yoga - Comments: dance Home/Environment Lives with:Spouse Substance Abuse - Denies Substance Abuse Tobacco - Denies Tobacco Use Family History Breast cancer: MGM. COPD: Mother. Diabetes mellitus: PGM. Heart disease: Paternal Uncle. Lung cancer: Father. Osteoporosis: Mother. Stroke: Mother. Stroke: PGM. Health Status Family Member(s) Family Member(s) Relationship: Mother, Age: Unknown, Cause: copd Relationship: Father, Age: Unknown, Cause: Lung Cancer Electronic Signature on File CC: Karen Raymond D.O. [address] [place] [id number] Electronically Reviewed/Signed by: SAMUEL Summers Author Signature Dt/Tm:10/09/2023 04:30 PM [facility] Patient Care team information Care Team Personnel Name: DO Raymond Gretchen Elizabeth Position: Physician - Family Med Member Role: Primary Care Provider Address: Address: [address] [place] [address], [place] [address] [place] Care Team Related Persons Name: RHODA SIMMONS Address: home [address] [id number] Name: RHODA SIMMONS Address: home [address] [facility] [facility], [place] [phone] Name: RHODA SIMMONS Address: [facility] Address: home [address] [facility] [phone] Name: YOKASTA HUTTON Address: [place] [address]"
--- OUTSIDE RECORDS SUMMARY | 2024-01-13 01:22 | External Medical Summary | Summary of Care ---
Author Name Unknown Organization [facility] Address [address] [place] [place] [address] Phone [phone] Care Team Providers Care Telecommunicator Supervisor Name Role Phone Karen Raymond DO Primary Care Provi isaac Reason for Visit * Reason Comments Outpatient Testing Encounter Details Date Type Department Care Team (Late st Contact Info) Description 11/01/2023 2:00 PM EDT Laboratory Laboratory [facility] [address] [place] [phone] [facility] [address] [place] [address] Age-related osteoporosis without current pathological fracture Allergies Active Allergy Reactions Criticality Noted Date Comments Gold 07/05/2004 Reaction to injection, ulcers in mouth documented as of this encounter (statuses as of 11/01/2023) Medications Medication Sig Dispensed Refills Start Date End Date Status LUTEIN 20 MG PO CAPS one capsule by mouth daily 0 Active Triamcinolone Acetonide 0.5 % cream as needed. 0 03/06/2019 Active Amoxicillin 250 MG Oral Capsule (Amoxil)Indications: patient to 3 hrs prior to 11/11/2020 surgery Take 8 Capsules by mouth as needed. Prior to dental appointment 0 Active NATURAL SUPPLEMENT Apply topically to affected area daily . Clarus Applies to toes and fingernails. Anti-fungal 0 Active Docusate Sodium 100 MG Oral Capsule (Colace) Take 1 Capsule by mouth in the morning and 1 Capsule before bedtime. 0 Active Acetaminophen ER 650 MG Oral Tablet Extended Release Take 1 Tablet by mouth every 8 hours as needed. 0 Active Folic Acid 1 MG Oral TabletIndications:Rh eumatoid arthritis involving multiple sites with positive rheumatoid factor (HCC) Take 1 Tablet by mouth in the morning. 90 Tablet 3 10/07/2022 Active Alendronate Sodium 70 MG Oral Tablet (Fosamax)Indications :Age-related osteoporosis without current pathological fracture TAKE 1 TABLET ONCE WEEKLY 12 Tablet 4 12/01/2022 Active Diclofenac Sodium 1 % External Gel (Voltaren Arthritis Pain) Apply topically to affected area. Apply to wrists 0 Active Etodolac 400 MG Oral TabletIndications:En counter for long-term (current) use of medications,Rheumato id arthritis involving multiple sites with positive rheumatoid factor (HCC) Take 1 Tablet by mouth in the morning and 1 Tablet before bedtime. 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 SUMMARY: Goal: Establish test characteristics (sensitivity, specificity, PPV, NPV) of a circulating tumor DNA (ctDNA)-based test for cancer. Hypothesis: Circulating tumor DNA (ctDNA) and elevated protein biomarkers (together, the marker panel) can be detected in asymptomatic individuals with early cancer. Specific Aim 1: Determine the prevalence of a positive marker panel test in a prospective clinical cohort of 10,000 asymptomatic women ages 65 to 75 years. Specific Aim 2: Determine the sensitivity, specificity, positive predictive value (PPV) and negative predictive value (NPV) of a marker panel test to identify histologically proven cancers that develop within 5-years of the marker panel evaluation. CONTACTS: During normal business hours, contact study staff at ; after hours Entry Level Account Executive via the [facility] engraving press operator . Please contact study team before resolving/deleting from patients problem list. Study phone number: [phone]. Diagnosis changed due to Research Module. Go to Snapshot for study details. Encounter for examination fo r normal comparison and control in clinical research program 12/13/2017 03/17/2022 Overview: DO NOT DELETE - [facility] Study: Project # [id number], Entry Level Account Executive: Christopher Martinez, MS, MPH. SUMMARY: Goal: Establish test characteristics (sensitivity, specificity, PPV, NPV) of a circulating tumor DNA (ctDNA)-based test for cancer. - Hypothesis: Circulating tumor DNA (ctDNA) and elevated protein biomarkers (together, the marker panel) can be detected in asymptomatic individuals with early cancer. - Specific Aim 1: Determine the prevalence of a positive marker panel test in a prospective clinical cohort of 10,000 asymptomatic women ages 65 to 75 years. - Specific Aim 2: Determine the sensitivity, specificity, positive predictive value (PPV) and negative predictive value (NPV) of a marker panel test to identify histologically proven cancers that develop within 5-years of the marker panel evaluation. - CONTACTS: During normal business hours, contact study staff at ; after hours Entry Level Account Executive via the [facility] hospital engraving press operator . - Please contact study team before resolving/deleting from patients problem list. Study phone number: [phone]. Diagnosis changed due to Research Module. Go to Raptr for study details. #[id number] 10/29/2004 Overview: Renamed Per Clinical Trials Billing Project. Pt is a participant in the [employer] ([employer]ortium [employer] of [place]) national data collection study. For further information please call Dr Semaj Barajas or Tamika Alcaraz, RN, CCRC at [phone] [employer] RESEARCH OTHER*[id number] 10/29/2004 01/11/2010 Overview: Renamed Per Clinical Trials Billing Project. Pt is a participant in the [employer] ([employer]ortium [employer] [place]) national data collection study. For further information please call Dr Semaj Barajas or Tamika Alcaraz RN, CCRC at [phone] Arthritis, rheumatoid 07/05/20042015 documented as of this encounter (statuses as of 11/01/2023) Immunizations Name Administration Dates Next Due COVID-19 mRNA, LNP-s, No Pre serve, 2-Dose Series (Moderna) 09/24/2021,03/05/2021,09/29/2020,09/01 Covid-19, Mrna, Lnp-s, Pf, B ivalent, 30 Mcg, IM, 12 yrs and above (Pfizer) 04/04/2022 DTaP Dipth/Tet/Acell Pertussis (Infanrix), Peds 08/21/2019 PPD 02/04/2011 Pneumococcal Conjugate Vacc, 13 Valent (Prevnar) 04/16/2015 Pneumococcal Polysaccharide PPV23 (Pneumovax) 08/21/2019,11/14/2006,07/17/2006,07/17 Season Influenza, Quad, PF, Adjuvanted, 65+ Yrs, IM (FLUAD) 04/22/2020 Seasonal Influenza, PF, 6 M & above, IM , (FluLaval or Fluzone) 04/17/2018 Seasonal Influenza, Quadriva lent Hd (Fluzone Hd) 04/26/2022,04/23/2021 Seasonal Influenza, Quadriva lent, No Preserve, IM 04/16/2015 Seasonal Influenza, Split, I IV3, No Preserve, Inj 05/03/2017,05/24/2016 Seasonal Influenza, Split, I IV3, With Preserve, Inj 04/23/2021,03/27/2014,06/05/2013,05/02,04/16/2011,06/15/2010,05/01/2009 ,05/26/2008,06/30/2007 Seasonal Influenza, Trivalen t, Adjuvanted, 65+ yrs 04/24/2019 documented as of this encounter Social History Tobacco Use Types Packs/Day Years Used Date Smoking Tobacco: Never Smokeless Tobacco: Never Alcohol Use Standard Drinks/Week Comments No 0 (1 standard drink = 0.6 oz pur e alcohol) Sex and Gender Information Value Date Recorded Sex Assigned at Female 04/21/2022 3:51 PM EDT Gender Identity Female 04/21/2022 3:51 PM EDT Sexual Orientation Straight 04/21/2022 3: 51 PM EDT Job Start Date Occupation Industry Not on file Not on file Not on file documented as of this encounter Plan of Treatment Upcoming Encounters Date Type Department Care Team (Late st Contact Info) Description 12/21/2023 9:30 AM EDT Laboratory Laboratory [facility] [address] [place] [phone] [facility] [address] [facility] [place] [address] 12/28/2023 11:00 AM EDT Office Visit Hematology/Oncology [facility] [place] [address] [place] [phone] Luisa Chance CRNP [address] [place] [address] 05/29/2024 9:20 AM EST Office Visit Rheumatology [place] [id number] [employer] [place] [address] Saeed Osorio MD [address] [place] [address] Pending Results Name Type Priority Associated Diagnoses Date /Time 25-HYDROXY VITAMIN D Lab Routine Age-related osteoporosis without current pathological fracture 11/01/2023 1:52 PM EDT Health Maintenance Due Date Last Done Comments Depression Screening 1961 Zoster Vaccines (1 of 2) 1968 Mammogram 1989 Cologuard 1994 Colonoscopy 1994 Colorectal Cancer Screening 1994 Fecal Occult Blood Test 1994 Sigmoidoscopy 1994 Lipid Panel 12/06/2016 12/07/2011, 06/02/2009 COVID-19 Vaccine ( season) 2023 04/04/2022, 09/24/2021, 03/05/2021, Additional history exists Influenza Vaccine (FLU shot) (Season Ended) 2024 04/26/2022, 04/23/2021, 04/23/2021, Additional history exists DXA Scan 10/15/2025 10/16/2023, 12/0 07/2020, 12/24/2018, Additional history exists DTaP,Tdap,and Td Vaccines (2 - Tdap) 08/21/2029 08/21/2019 VITAMIN D LEVEL ONCE IN A LIFETIME-USE SMARTSET# [id number] Completed 11/24/2008 Pneumococcal Vaccine: 65+ Years Completed 08/21/2019, 04/16/2015, 11/14/2006, Additional history exists GARDASIL-HPV IMMUNIZATION SERIES Aged Out No longer eligible based on patient's age to complete this topic Hepatitis B Aged Out No longer eligi ble based on patient's age to complete this topic MENINGOCOCCAL (MENACTRA/MENVEO) Aged Out No longer eligible based on patient's age to complete this topic documented as of this encounter Medical Devices Not on filedocumented as of this encounter Visit Diagnoses Diagnosis Age-related osteoporosis without current pathological fracture Senile osteoporosis documented in this encounter Care Teams Telecommunicator Supervisor Relationship Specialty Start Date End Date Karen Raymond DO [address] [place] [address] PCP - General Family Medicine 05/31/23 documented as of this encounter
--- OUTSIDE RECORDS SUMMARY | 2024-01-13 01:22 | External Medical Summary | Continuity of Care Document ---
Author Name Unknown Organization [facility] [address] [facility] Address [address] [place], [place] [id number] Care Team Providers Care Tilt Wall Supervisor Name Role Phone MandiKaren lares Rosibel Primary Care Physicia n [phone] [facility] [id number] Date(s): 10/18/23 - 10/18/23 [facility] [address], [address] [place] [phone] Discharge Disposition: Home or Self Care Attending Physician: SAMUEL [place] Sarah A Referring Physician: SAMUEL [place] Sarah A Allergies, Adverse Reactions, Alerts Substance Reaction Severity Status Allergy Not found in Search 1 sores in mouth Active 1Gold Immunizations Given and Recorded Vaccine Date Status [...] vaccine 4 07/17/01 Recorded tetanus/diphtheria/pertuss, acel (Tdap) 2/5/20 G iven tetanus/diphtheria/pertuss, acel (Tdap) 06/03/09 R [...] dental and other procedures as directed, Pharmacy: [facility]/pharmacy #[id number] Start Date: 01/29/18 Status: Ordered Colace 100 [...] twice daily as needed for itch/rash, Pharmacy: [facility]/pharmacy #[id number] Start Date: 09/07/23 Stop Date: 01/05/24 Status: Ordered Tylenol Start: 09/15/17 12:52:00 EST, 325 mg =, PO, qid, PRN: as needed for pain Start Date: 09/15/17 Status: Ordered Problem List Condition Confirmation Course Effective Dates [...] benign. 2saw Dr. Sergio Chadwick, urologist at [facility] 3Sees Dr. Crescencio Hardy, order fulfillment specialist at [facility]. 4multiple lung nodules up to 4mm noted in abd/pelvis CT in 02/2019. 5sees rheumatology 6sees Dr. Connor Robb, hemotologist [place] [facility] 7sees rheumatology 8Pelvis US in 2019: 13mm anterior fundal fibroid. Otherwise unremarkable study. Procedures Procedure Date Related Diagnosis Body Site [...] and pelvis 20 03/15/19 Com pleted After-cataract 12/2018 Complet ed Screening mammogram of bilat [...] appearance. Surgical consultation forsurgical excision of a contact representative lymph node is recommended. 10status post fine needle aspiration biopsy and clip placement of a contact representative prominent right axillary lymph node. the specimen was sent stat to the pathology department for cytologic analysis 11Impression: There are several small right axillary lymph nodes with mildly prominent cortices that may be increased in cortical thickness compared to the previous ultrasound. Would recommend attempting ultrasound-guided fine-needle aspiration and/or core needle bipsy of a contact representative lymph node for definitive characterization. This [...] internal hemorrhoids. 35both hand tendon rupture repair. Results Radiology Reports * Exam Date Time Procedure Performing Provider Status 10/18/23 3:01 PM Echo TransTHORacic TTE Complete ; Final Notes: (Echo TransTHORacic TTE Complete) Reason For Exam: pulmonary hypertension Echo TransTHORacic TTE Complete Report Signatures Finalized by Dr. [place] Durbin MD on 10/18/2023 05:55 PM [place] Act 112: No-No further action needed Summary 1. Normal left ventricular size with hyperdynamic systolic function and no regional wall motion abnormalities. 2. Ejection fraction as calculated by Biplane Simpsons method is >75 %. 3. No left ventricular hypertrophy. 4. Grade II diastolic dysfunction of the left ventricle (pseudonormal filling pattern). 5. Indeterminate left atrial filling pressure. 6. Normal right ventricular size and function. 7. Moderately dilated left atrium. 8. Normal right atrium. 9. Mild mitral regurgitation. 10. Mild to moderate tricuspid regurgitation. 11. Mildly elevated pulmonary artery pressures, estimated PASP 37 mmHg. 12. Compared to previous study from 03/23/2022 , there is no significant change. Patient Info Name: REDD SIMMONS Age: 73 years : 1950 Gender: Female Ht: 152 cm Wt: 50 kg BSA: 1.46 m2 HR: 64 bpm BP: 118 / 50 mmHg Heart Rhythm: Sinus Rhythm Technical Quality: Good Exam Date: 10/18/2023 2:10 PM Exam Location: [facility] Patient Status: Outpatient Staff Ordering Physician: Mariana [place] Song Writer: Shawnee Aragon RDCS RVT Attending Physician: Mariana [place] Study Info CPT 31915 - Indications I27.20 - Pulmonary hypertension Procedure(s) * A complete two-dimensional, color flow and Doppler transthoracic echocardiogram was performed. Exam Type: Cardiac Basic Left Ventricle Normal left ventricular size with hyperdynamic systolic function and no regional wall motion abnormalities. Ejection fraction as calculated by Biplane Simpsons method is >75 %. No left ventricular hypertrophy. Grade II diastolic dysfunction of the left ventricle (pseudonormal filling pattern). Indeterminate left atrial filling pressure. Right Ventricle Normal right ventricular size and function. TAPSE is normal, 3.0 cm. Left Atrium Moderately dilated left atrium. Right Atrium Normal right atrium. Atrial Septum Appears intact. Aortic Valve Sclerotic, tricuspid aortic valve without stenosis. Trivial aortic insufficiency. Pulmonic Valve Structurally unremarkable pulmonic valve with no significant flow abnormalities. Estimated pulmonary arterial mean pressure 18 mmHg. Mitral Valve Mildly calcified mitral valve annulus without stenosis. Mild mitral regurgitation. Tricuspid Valve Structurally normal tricuspid valve. Mild to moderate tricuspid regurgitation. Mildly elevated pulmonary artery pressures, estimated PASP 37 mmHg. Pericardium/Pleural Trace pericardial effusion. Inferior Vena Cava Dilated IVC with normal inspiratory collapse. Estimated right atrial pressure is 8 mmHg. Aorta Normal aortic root, ascending aorta and aortic arch. Left Ventricular Outflow Tract Name Value Normal LVOT 2D LVOT Diameter 1.6 cm LVOT Doppler LVOT Peak Velocity 1.19 m/s LVOT Peak Gradient 6 mmHg LVOT Mean Gradient 3 mmHg LVOT VTI 25.91 cm LVOT Stroke Volume 49.99 ml LVOT Stroke Volume Index 0.03 l/m2 LVOT Cardiac Output 3.20 l/min LVOT Cardiac Index 2.20 L/min/m2 Pulmonic Valve Name Value Normal PV 2D RVOT Diameter (2D) 1.3 cm 1.7-2.7 RVOT Doppler RVOT Peak Velocity 0.98 m/s PV Doppler PV Peak Velocity 1.59 m/s PV Regurgitation Doppler SC Peak Velocity 1.57 m/s Mitral Valve Name Value Normal MV Doppler MV PHT 82 ms MV Diastolic Function MV E Peak Velocity 0.87 m/s <=0.50 MV A Peak Velocity 0.59 m/s MV E/A 1.47 <=0.80 MV Decel Time 282 ms MV Annular TDI MV Septal s' Velocity 7.27 cm/s MV Septal e' Velocity 6.40 cm/s >=7.00 MV E/e' (Septal) 13.6 <=8.0 MV Lateral s' Velocity 8.76 cm/s MV Lateral e' Velocity 8.59 cm/s >=10.00 MV E/e' (Lateral) 10.13 <=8.00 MV e' Average 7.50 MV E/e' (Average) 11.86 <=14.00 Tricuspid Valve Name Value Normal TV Regurgitation Doppler TR Peak Velocity 2.68 m/s <=2.80 Estimated PAP/RSVP RA Pressure 8 mmHg <=5 PA Systolic Pressure 37 mmHg <40 PA Mean Pressure (SC Velocity) 18 mmHg TV Diastolic Function TV E Peak Velocity 0.39 m/s TV A Peak Velocity 0.30 m/s TV E/A 1.29 0.80-2.00 TV Decel Time 216 ms >=120 TV Annular TDI TV Lateral Kayley s' Velocity 15.9 cm/s 9.5-18.7 TV Lateral Kayley e' Velocity 10.7 cm/s <7.8 TV E/e' 3.66 2.00-6.00 Aorta Name Value Normal Ascending Aorta Sinus of Valsalva Diameter 2.7 cm 2.7-3.3 Sinus of Valsalva Index 1.83 cm/m2 1.60-2.00 Prox Asc Ao Diameter 2.9 cm 2.3-3.1 Prox Asc Ao Diameter Index 2.00 cm/m2 1.30-1.90 Thoracic Aorta Ao Arch Diameter 2.9 cm Desc Ao Peak Velocity 0.84 m/s Desc Ao Peak Gradient 3 mmHg Venous Name Value Normal IVC/SVC IVC Diameter (Insp 2D) 0.7 cm IVC Diameter (Exp 2D) 2.4 cm <=2.1 IVC Diameter Percent Change (2D) 70 % >=50 Aortic Valve Name Value Normal AV Doppler AV Peak Velocity 1.49 m/s <2.00 AV Peak Gradient 9 mmHg AV Area (Cont Eq Jeronimo) 1.5 cm2 AV Area Index (Cont Eq Jeronimo) 1.06 cm2/m2 AV V1/V2 Ratio 0.80 AV Regurgitation 2D LVOT Area 1.9 cm2 Ventricles Name Value Normal LV Dimensions 2D/MM IVS Diastolic Thickness (2D) 0.8 cm 0.6-0.9 LVID Diastole (2D) 4.2 cm 3.3-5.1 LVIW Diastolic Thickness (2D) 0.9 cm 0.6-0.9 LVID Systole (2D) 2.4 cm 2.2-3.5 LVOT Diameter 1.6 cm LV Mass (2D Cubed) 106.36 g 67.00-162.00 Relative Wall Thickness (2D) 0.41 LV Fractional Shortening/Ejection Fraction 2D/MM LV Fractional Shortening (2D) 44 % 27-45 LV Diastolic Volume (4C MOD) 42 ml LV Diastolic Volume (2C MOD) 51 ml LV Diastolic Volume (BP MOD) 46 ml 46-106 LV Diastolic Volume Index (BP MOD) 31.84 ml/m2 29.00-61.00 LV Systolic Volume (BP MOD) 11 ml 14-42 LV Systolic Volume Index (BP MOD) 7.65 ml/m2 8.00-24.00 LV EF (BP MOD) 76 % 58-69 LV SV (BP MOD) 35.25 ml RV Dimensions 2D/MM RV Basal Diastolic Dimension 3.7 cm 2.5-4.1 TAPSE 3.0 cm >=1.7 Atria Name Value Normal LA Dimensions LA Area (4C) 18.0 cm2 LA Length (4C) 4.9 cm LA Area (2C) 20.8 cm2 LA Length (2C) 5.3 cm LA Volume (4C A-L) 55.73 ml LA Volume (2C A-L) 69.14 ml LA Volume (BP A-L) 64 ml 22-52 LA Volume Index (BP A-L) 44.26 ml/m2 <=34.00 RA Dimensions RA Area (4C) 15.8 cm2 <=18.0 Final Signed by:DO Durbin Jason D Signed (Electronic Signature):10/18/2023 2:10 p Social History Social History Type Response Smoking Status Never smoked cigaret william Sex Female Patient Care team information Care Team Personnel Name: DO Raymond Gretchen Elizabeth Position: Physician - Family Med Member Role: Primary Care Provider Address: Address: [address] [place] [address], [place] [address] Care Team Related Persons Name: RHODA SIMMONS Address: home [address] [facility] [id number] Name: RHODA SIMMONS Address: home [address] [facility] [id number] Name: RHODA SIMMONS Address: [place] Address: home [address] [facility] [id number] Name: YOKASTA HUTTON Address: [place] [address]
--- OUTSIDE RECORDS SUMMARY | 2024-01-13 01:22 | External Medical Summary | Summary of Care ---
Author Name Unknown Organization [facility] Address [address] [place] [address] Phone [phone] Care Team Providers Care Progress Man Name Role Phone Karen Raymond DO Primary Care Provi isaac Reason for Visit * Reason Onset Date Comments Order Request 11/02/2023 Encounter Details Date Type Department Care Team (Late st Contact Info) Description 11/02/2023 Telephone Rheumatology [place] [address] [place] [address] Saeed Osorio MD [facility] [place] [address] Order Request Allergies Active Allergy Reactions Criticality Noted Date Comments Gold 07/05/2004 Reaction to injection, ulcers in mouth documented as of this encounter (statuses as of 11/02/2023) Medications Medication Sig Dispensed Refills Start Date [...] as of this encounter (statuses as of 11/02/2023) Active Problems Problem Noted Date Diagnosed Date 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 SUMMARY: Goal: Establish test [...] contact study staff at ; after hours Water Resource Engineer via the [facility] roto rooter operator . Please contact study team before resolving/deleting from patients problem list. Study phone number: [phone]. Diagnosis changed due to Research Module. Go to Snapshot for study details. Encounter for examination fo r normal comparison and control in clinical research program 12/13/2017 03/17/2022 Overview: DO NOT DELETE - [facility] Study: Project # [id number], Water Resource Engineer: Christopher Martinez, MS, MPH. SUMMARY: Goal: Establish [...] contact study staff at ; after hours Water Resource Engineer via the [facility] hospital roto rooter operator . - Please contact study team before resolving/deleting from patients problem list. Study phone number: [phone]. Diagnosis changed due to Research Module. Go to Vocal[employer] for study details. #[id number] 10/29/2004 Overview: Renamed Per Clinical Trials Billing Project. Pt is a participant in the [employer] (Consortium of Rheumatology Researchers of [place]) national data collection study. For further information please call Dr Semaj Barajas or Tamika Alcaraz, RN, CCRC at [phone] [employer] RESEARCH OTHER*[id number] 10/29/2004 01/11/2010 Overview: Renamed Per Clinical Trials Billing Project. Pt is a participant in the [employer] (Consortium of Rheumatology Researchers [place]) national data collection study. For further information please call Dr Semaj Barajas or Tamika Alcaraz RN, CCRC at [phone] Arthritis, rheumatoid 07/05/20042015 documented as of this encounter (statuses as of 11/02/2023) Immunizations Name Administration Dates Next Due COVID-19 [...] on file documented as of this encounter Miscellaneous Notes * Telephone Encounter - Saeed Osorio MD - 11/02/2023 8:12 AM EDT See email documented in this encounter Plan of Treatment Upcoming Encounters Date Type Department Care Team (Late st Contact Info) Description 12/21/2023 9:30 AM EDT Laboratory Laboratory [facility] [address] [facility] [place] [id number] Mike Mendoza [address] [place] [address] 12/28/2023 11:00 AM EDT Office Visit Hematology/Oncology [facility] [place] [address] [place] [phone] Luisa Chance, SAMUEL [address] [facility] [place] [address] 05/29/2024 9:20 AM EST Office Visit Rheumatology [place] [address] [employer] [place] [address] Saeed Osorio MD [address] [facility] [place] [address] Scheduled Orders Name Type Priority Associated Diagnoses Orde r Schedule 25-HYDROXY VITAMIN D Lab Routine Vitamin D deficiency Expected: 02/01/2024, Expires: 11/01/2024 Health Maintenance Due Date Last Done Comments [...] Td Vaccines (2 - Tdap) 08/21/2029 08/21/2019 Pneumococcal Vaccine: 65+ Years Completed 08/21/2019, 04/16/2015, 11/14/2006, Additional history exists VITAMIN D LEVEL ONCE IN A LIFETIME-USE SMARTSET# [id number] Completed 11/01/2023, 11/24/2008 GARDASIL-HPV IMMUNIZATION SERIES Aged Out No longer [...] as of this encounter Visit Diagnoses Diagnosis Vitamin D deficiency- Primary Unspecified vitamin D deficiency documented in this encounter Care Teams Progress Man Relationship Specialty Start Date End Date Karen Raymond DO [address] [place] [address] PCP - General Family Medicine 05/31/23 documented as of this encounter
--- OUTSIDE RECORDS SUMMARY | 2024-01-13 01:22 | External Medical Summary | Summary of Care ---
Author Name Unknown Organization [facility] Address [address] [facility] [place] [address] Phone [phone] Care Team Providers Care Dye Machine Tender Name Role Phone Karen Raymond DO Primary Care Provi isaac Encounter Details Date Type Department Care Team (Late st Contact Info) Description 10/23/2023 Orders Only PATIENT PORTAL DO NOT DELETE THIS DEPT USED BY [place] [address] Allergies Active Allergy Reactions Criticality Noted Date Comments Gold 07/05/2004 Reaction to injection, ulcers in mouth documented as of this encounter (statuses as of 10/23/2023) Medications Medication Sig Dispensed Refills Start Date [...] as of this encounter (statuses as of 10/23/2023) Active Problems Problem Noted Date Diagnosed Date Low grade B-cell lymphoma 03/04/2021 Thrombocytopenia 05/08/2017 Neutropenia 05/08/2017 History of rheumatoid arthritis 05/12/2016 Osteoporosis 07/05/2004 documented as of this encounter (statuses as of 10/23/2023) Resolved Problems Problem Noted Date Diagnosed Date Resolved Date Encounter for examination fo r normal comparison and control in clinical research program 12/13/2017 02/17/2020 Overview: DO NOT DELETE [facility] DETECT Study: Project # [id number], Binding Nicker: Marty Antonio, PhD. SUMMARY: Goal: Establish test [...] contact study staff at ; after hours Binding Nicker via the [facility] hospital electronic warfare operator . Please contact study team before resolving/deleting from patients problem list. Study phone number: [phone]. Diagnosis changed due to Research Module. Go to Snapshot for study details. Encounter for examination fo r normal comparison and control in clinical research program 12/13/2017 03/17/2022 Overview: DO NOT DELETE - [facility] DETECT Study: Project # [id number], Binding Nicker: Christopher Martinez, MS, MPH. SUMMARY: Goal: Establish [...] contact study staff at ; after hours Binding Nicker via the [facility] hospital electronic warfare operator . - Please contact study team before resolving/deleting from patients problem list. Study phone number: [phone]. Diagnosis changed due to Research Module. Go to Snapshot for study details. #[id number] 10/29/2004 Overview: Renamed Per Clinical Trials Billing Project. Pt is a participant in the [employer] (Consortium of Rheumatology Researchers of [place]) national data collection study. For further information please call Dr Semaj Barajas or Tamika Alcaraz, RN, CCRC at [phone] [facility] RESEARCH OTHER*[id number] 10/29/2004 01/11/2010 Overview: Renamed Per Clinical Trials Billing Project. Pt is a participant in the [employer] (Consortium of Rheumatology Researchers [place]) national data collection study. For further information please call Dr Semaj Barajas or Tamika Alcaraz RN, CCRC at [phone] Arthritis, rheumatoid 07/05/20042015 documented as of this encounter (statuses as of 10/23/2023) Immunizations Name Administration Dates Next Due COVID-19 [...] Description 12/21/2023 9:30 AM EDT Laboratory Laboratory [facility] [address] [place] [id number] [facility] [address] [facility] [place] [address] 12/28/2023 11:00 AM EDT Office Visit Hematology/Oncology [facility] [address] [place] [phone] Luisa Chance CRNP [address] [place] [address] 05/29/2024 9:20 AM EST Office Visit Rheumatology [facility] [address] [place] [address] Saeed Osorio MD [address] [place] [address] Health Maintenance Due Date Last Done Comments [...] D LEVEL ONCE IN A LIFETIME-USE SMARTSET# [id number] Completed 11/24/2008 Pneumococcal Vaccine: 65+ Years Completed [...] Not on filedocumented as of this encounter Care Teams Dye Machine Tender Relationship Specialty Start Date End Date Karen Raymond DO [address] [facility] [place] [address] PCP - General Family Medicine 05/31/23 documented as of this encounter
--- OUTSIDE RECORDS SUMMARY | 2024-01-13 01:22 | External Medical Summary | Summary of Care ---
Author Name Unknown Organization [facility] Address [address] [facility] [place] [address] Phone [phone] Care Team Providers Care Manager Online Name Role Phone Karen Raymond DO Primary Care Provi isaac Reason for Visit * Reason Comments Outpatient Testing Encounter Details Date Type Department Care Team (Late st Contact Info) Description 11/01/2023 2:00 PM EDT Laboratory Laboratory [facility] [address] [place] [phone] [facility] [address] [place] [address] Age-related osteoporosis without current pathological fracture Allergies [...] program 12/13/2017 02/17/2020 Overview: DO NOT DELETE [facility] DETECT Study: Project # [id number], Assembler Gold Frame: Marty Antonio, PhD. SUMMARY: Goal: Establish test [...] contact study staff at ; after hours Assembler Gold Frame via the [facility] power ballast machine operator . Please contact study team before resolving/deleting from patients problem list. Study phone number: [phone]. Diagnosis changed due to Research Module. Go to Snapshot for study details. Encounter for examination fo r normal comparison and control in clinical research program 12/13/2017 03/17/2022 Overview: DO NOT DELETE - [facility] Study: Project # [id number], Assembler Gold Frame: Christopher Martinez, MS, MPH. SUMMARY: Goal: Establish [...] contact study staff at ; after hours Assembler Gold Frame via the [facility] power ballast machine operator . - Please contact study team before resolving/deleting from patients problem list. Study phone number: [phone]. Diagnosis changed due to Research Module. Go to [employer] for study details. #[id number] 10/29/2004 Overview: Renamed Per Clinical Trials Billing Project. Pt is a participant in the [employer] (Consortium of Rheumatology Researchers [place]) national data collection study. For further information please call Dr Semaj Barajas or Tamika Alcaraz, RN, CCRC at [phone] [employer] OTHER*[id number] 10/29/2004 01/11/2010 Overview: Renamed Per Clinical Trials Billing Project. Pt is a participant in the [employer] (Consortium of Rheumatology Researchers [place]) national data collection study. For further information please call Dr Semaj Barajas or Tamika Alcaraz RN, CCRC at [phone] Arthritis, rheumatoid 07/05/20042015 documented as of this [...] Description 12/21/2023 9:30 AM EDT Laboratory Laboratory [facility] [address] [place] [phone] [facility] [address] [facility] [place] [address] 12/28/2023 11:00 AM EDT Office Visit Hematology/Oncology [facility] [address] [place] [address] [place] [phone] Luisa Chance CRNP [address] [place] [address] 05/29/2024 9:20 AM EST Office Visit Rheumatology [place] [id number] [employer] [place] [address] Saeed Osorio MD [address] [place] [address] Pending Results Name Type Priority Associated Diagnoses [...] D LEVEL ONCE IN A LIFETIME-USE SMARTSET# 51101 Completed 11/24/2008 Pneumococcal Vaccine: 65+ Years Completed [...] osteoporosis documented in this encounter Care Teams Manager Online Relationship Specialty Start Date End Date Karen Raymond DO [address] [place] [address] PCP - General Family Medicine 05/31/23 documented as of this encounter
--- OUTSIDE RECORDS SUMMARY | 2024-01-13 01:22 | External Medical Summary ---
Author Name Unknown Address Unknown Organization K01:[facility] [place] [address] [place] [address] Laboratory Report Ordering Provider Test Date Status OSMEL PRYOR 11/01/2023 13:52:47 Final Deficient: <20 ng/mL
Ins ufficient: 20-29 ng/mL
Recommended/Optimum:30-50 ng/mL

Vitamin D intoxication is rare. If suspicious of Vitamin D toxicity, evaluation of serum Calcium and PTH is recommended. Observation Date Value Abnormality Reference (Units ) Status 25-OH Vitamin D total 11/01/2023 13:52:47 18 Below low normal >19 (ng/mL) Final Performing Location [facility] [place] [address] [place] [address]
--- OUTSIDE RECORDS SUMMARY | 2024-01-13 01:23 | External Medical Summary | Continuity of Care Document ---
Author Name Unknown Organization [place] [id number] [place] [id number] Care Team Providers Care General Helper Name Role Phone Karen Raymond Primary Care Physicia n [phone] Encounter [facility] [id number] Date(s): 09/13/23 - 09/13/23 [facility] [address] [place] [address] [place] [id number] [place] [phone] Encounter Diagnosis Body mass index [BMI] 20.0-20.9, adult(Discharge Diagnosis) - 09/13/23 Hypotension(Discharge Diagnosis) - 09/13/23 B-cell lymphoma(Discharge Diagnosis) - 09/15/23 RHEUMATOID ARTHRITIS(Discharge Diagnosis) - 09/15/23 Osteopenia(Discharge Diagnosis) - 09/15/23 Thrombocytopenia(Discharge Diagnosis) - 09/15/23 Hearing loss(Discharge Diagnosis) - 09/13/23 Pulmonary nodules(Discharge Diagnosis) - 09/15/23 Discharge Disposition: Home or Self Care Attending Physician: DO Raymond Gretchen Elizabeth Allergies, Adverse Reactions, Alerts Substance Reaction Severity Status Allergy Not found in Search 1 sores in mouth Active 1Gold Assessment and Plan Extracted from: Title:hypotension, lymphoma, RA Author:Chapin Raymond Gretchen Elizabeth Date:09/13/23 1.Hypotension Active, patient brought in home blood pressurelog,consistently frombeginning of August to present,systolic blood pressuresin 100s-110s,diastolic pressuresin 30s-50s, patient not on antihypertensive medication,has had some improvementwithcompression stockings(advisedzip updue to difficultyputting on). Patient endorses intermittent episodes of dizziness, no presyncope or fall, patient deniespostpradial or positional component. We discussed that dramatic cut of salt intake might be contributing to this, patient was watching hersalt and abiding by a low-salt diet to support her who has hypertension.Advised liberal salt intake, discussedhydration,reviewed patientpositional changes and mindfulness to not fall. Will continue home monitoring, patient will call if BPs drop or feels symptomatic, considerFlorinef ifpressures remain low, referralplaced for cardiology evaluation. 2.B-cell lymphoma Chronic, active, follows with[facility]ology oncology at [facility], reviewed last visitfor low-grade B-cell lymphoma, currently under observation, patient denies B signs,continue monitoring for leukopenia and thrombocytopenia, last LDH mildly [id number],underground foreman states okay for prednisone or DMARD therapy if needed forRA 3.Thrombocytopenia Chronic, active, last platelets 126, no signs of active bleeding 4.Hearing loss Active, referral placed to audiology for evaluation 5.RHEUMATOID ARTHRITIS Active, not currently on DMARDs, previously on methotrexate,and Humira, at present patient utilizing Voltaren and etodlac, follows with rheumatology (juan f?) 6.Osteopenia Chronic, hx of steroid use, on fosamax therapy, [facility].Pulmonary nodules Evaluated by pulmonology,reviewed lastnote, noted stabilityof pulmonary knowledge jewels for over 36 months, at present not recommending a follow-up CT scanhowever if patient denies symptoms or respiratory complaints, will require further workup. Is recommended to maintain up-to-date vaccine status. Patient and currently on list for [employer]. Patient will discuss cognitive exam at follow-up. Due for AMWV. Total physician time spent on day of encounter with patient including pre-visit planning, chart review, [id number] discussion, education, care coordination,and documentation:42 minutes Immunizations Given and Recorded Vaccine Date Status [...] dental and other procedures as directed, Pharmacy: [facility]/pharmacy #[id number] Start Date: 01/29/18 Status: Ordered Colace 100 [...] twice daily as needed for itch/rash, Pharmacy: [facility]/pharmacy #[id number] Start Date: 09/07/23 Stop Date: 01/05/24 Status: Ordered Tylenol Start: 09/15/17 12:52:00 EST, 325 mg =, PO, qid, PRN: as needed for pain Start Date: 09/15/17 Status: Ordered Mental Status 09/13/23 Barriers to Learning one year None evide nt Mandatory Health Literacy Documentation Yes Health Literacy Communication Barriers N ever Primary Language Persian Problem List Condition Confirmation Course Effective Dates [...] benign. 2saw Dr. Sergio Chadwick[place] [facility] 3Sees Dr. Crescencio Hardy, cable television access coordinator [place] [facility] 4multiple lung nodules up to 4mm noted in abd/pelvis CT in 02/2019. 5sees rheumatology 6sees Dr. Connor Robb, hemotologist at [facility] [place] 7sees rheumatology 8Pelvis US in 2019: 13mm anterior fundal fibroid. Otherwise unremarkable study. Diagnosis Diagnosis Type Effective Dates Health Status Clinical Service Informant Hearing loss Discharge Diagnosis 09/13/23 Non-Specified Hypotension Discharge Diagnosis 09/13/23 Non-Specified Body mass index [BMI] 20.0-20.9, adult Discharge Diagnosis 09/13/23 Non-Specified Thrombocytopenia Discharge Diagnosis 09/15/23 B-cell lymphoma Discharge Diagnosis 09/15/23 RHEUMATOID ARTHRITIS Discharge Diagnosis 09/15/23 Osteopenia Discharge Diagnosis 09/15/23 Pulmonary nodules Discharge Diagnosis 09/15/23 Procedures Procedure Date Related Diagnosis Body Site [...] appearance. Surgical consultation forsurgical excision of a denial management representative lymph node is recommended. 10status post fine needle aspiration biopsy and clip placement of a denial management representative prominent right axillary lymph node. the specimen was sent stat to the pathology department for cytologic analysis 11Impression: There are several small right axillary lymph nodes with mildly prominent cortices that may be increased in cortical thickness compared to the previous ultrasound. Would recommend attempting ultrasound-guided fine-needle aspiration and/or core needle bipsy of a denial management representative lymph node for definitive characterization. This [...] Most recent to oldest [Reference Range]: 1 2 Height 157 cm (09/13/23 1:01 PM) Patient Weight 50.8 kg (09/13/23 1:01 PM) Body Mass Index 20.61 kg/m2 (09/13/23 1:01 PM) Heart Rate 60 bpm (09/13/23 1:01 PM) Blood Pressure 112/58mmHg (09/13/23 1:55 PM) 122/68mmHg (09/13/23 1:01 PM) Cuff Pulse Pressure 54 mmHg (09/13/23 1:01 PM) Social History Social History Type Response Smoking Status Never smoked cigaret william Sex Female FCM Outpt Note * DO Raymond Gretchen Elizabeth: PERFORM Event Display: FCM Outpt Note Authored Date: Chief Complaint 3 month F/U for BP History of Present Illness Having hypotensive episodes, head was feeling dizzy, has been feeling betterlately Is mindful of position changes Symptoms improved with lying down Episodes less frequent Wearing compression socks and trying to stay hydrated Cut back on salt Didn't get a call from audiology, interested in testing From early Aug, [id number], DBP 30s-50s Still on list at [facility] Review of Systems Pertinent positives and negatives as stated in history of present illness. Physical Exam Vitals & Measurements HR:60(Monitored) BP:112/58 SpO2:12% HT:157cm WT:50.800kg(Dosing) WT:50.8kg BMI:20.61 PHQ2 Data(Data Documented on:09/13/2023 13:01) Emotional health assessment NEGATIVE General:Alert and oriented, no acute distress HEENT:Normocephalic,atraumatic, conjunctiva clear, bilateral TMs clear(small amount ofcerumen removed from right ear canal with curette) Cardiovascular:Normal rate, regular rhythm, no murmur, no gallop, +S1/S2, no S3/S4, no lower extremity edema, has wearing compression stockings Respiratory:Lungs clear bilaterally to auscultation, respirations non- labored, breath sounds equal, no rhonchi, no rales Gastrointestinal: Normal bowel sounds Psych:Mood and affect congruent. MSK: bilateral arthritic deformity of hands/fingers (03/23/2022 10:47 EDT Echo TransTHORacic TTE Complete) Reason For Exam Cardiomegaly is seen with biatrial enlargement noted on recent chest CT Echo TransTHORacic TTE Complete Report Signatures Finalized by Dr. Dalton Durbin MD on 03/23/2022 05:26 PM [place] Act 112: No-No further action needed Summary 1. Normal left ventricular size with hyperdynamic systolic function with no regional wall motion abnormalities. 2. Ejection fraction as calculated by Biplane Simpsons method is >70 %. 3. No left ventricular hypertrophy. 4. Indeterminate diastolic function and left atrial filling pressure. 5. Normal right ventricular size and function. 6. Mildly dilated left atrium. 7. Trace to mild mitral regurgitation. 8. Mild tricuspid regurgitation. 9. Mildly elevated pulmonary artery pressures, estimated PASP 39 mmHg. 10. No prior studies for comparison. [1] Assessment/Plan 1.Hypotension Active, patient brought in home blood pressurelog,consistently frombeginning of August to present,systolic blood pressuresin 100s- 110s,diastolic pressuresin 30s-50s, patient not on antihypertensive medication,has had some improvementwithcompression stockings(advisedzip updue to difficultyputting on). Patient endorses intermittent episodes of dizziness, no presyncope or fall, patient deniespostpradial or positional component. We discussed that dramatic cut of s alt intake might be contributing to this, patient was watching hersalt and abiding by a low-salt diet to support her who has hypertension.Advised liberal salt intake, discussedhydration,reviewed patientpositional changes and mindfulness to not fall. Will continue home monitoring, patient will call if BPs drop or feels symptomatic, considerFlorinef ifpressures remain low,referralplaced for cardiology evaluation. 2.B-cell lymphoma Chronic, active, follows withhematology oncology at [facility], reviewed last visitfor [id number] lymphoma, currently under observation, patient denies B signs,continue monitoring for leukopenia and thrombocytopenia, last LDH mildly [id number],underground foreman states okay for prednisone or DMARD therapy if needed forRA 3.Thrombocytopenia Chronic, active, last platelets 126, no signs of active bleeding 4.Hearing loss Active, referral placed to audiology for evaluation 5.RHEUMATOID ARTHRITIS Active, not currently on DMARDs, previously on methotrexate,and Humira, at present patient utilizing Voltaren and etodlac, follows with rheumatology (opperman?) 6.Osteopenia Chronic, hx of steroid use, on fosamax therapy, [facility] 7.Pulmonary nodules Evaluated by pulmonology,reviewed lastnote, noted stabilityof pulmonary knowledge jewels for over 36 months, at present not recommending a follow-up CT scanhowever if patient denies symptoms or respiratory complaints, will require further workup. Is recommended to maintain up-to-date vaccine status. Patient and currently on list for [employer]. Patient will discuss cognitive exam at follow-up. Due for [facility]WV. Total physician time spent on day of encounter with patient including pre-visit planning, chart review, [id number] discussion, education, care coordination,and documentation:42 minutes Problem List/Past Medical History Ongoing Arthropathy of right shoulder Atrophic vaginitis B-cell lymphoma Cannot hear Fibroid, uterine Hearing loss Hematuria Hypotension Leukopenia Multiple nodules of lung Osteopenia Post menopausal problems Pulmonary nodules RHEUMATOID ARTHRITIS S/p reverse total shoulder arthroplasty Thrombocytopenia Weight disorder Historical ANEMIA Benign skin lesion of forehead Constipation Procedure/Surgical History Mammogram - screening (06/28/2022)CT of chest (03/09/2022)Chest CT (03/09/2022)Diagnostic mammogram with targeted US Left breast (01/06/2022)Diagnostic mammogram (07/05/2021)Mammogram - screening (06/24/2021)Lymph node biopsy (11/2020)Needle localization Right Breast (11/09/2020)PET CT of whole body (10/22/2020)Fine needle aspiration of breast right (09/15/2020)Ultrasound scan of breast and axilla (09/08/2020)Mammogram - screening (06/23/2020)Ultrasound scan of right breast (03/03/2020)CT of chest (02/20/2020)CT of abdomen and pelvis (10/02/2019)US - Ultrasound (08/30/2019)Cytology (08/27/2019)Mammogram - screening (06/18/2019)Colonoscopy (05/02/2019)Abdomen and pelvis (03/15/2019)After-cataract (12/2018)Screening mammogramof bilateral breasts (06/15/2018)Reverse total right shoulder replacement (11/17/2017)X-ray of cervical spine (10/30/2017)Shoulder X-ray (09/25/2017)Shoulder X-ray-Right (07/25/2017)Shoulder X-ray (07/25/2017)Mammogram - screening (06/13/2017)Phacoemulsification with intraocular lens implantation of Right eye (01/26/2017)Phacoemulsification with intraocular lens implantation (12/22/2016)Cataract surgery (2016)Mammogram - screening (06/06/2016)Mammogram - screening (06/04/2015)Colonoscopy (05/08/2015)Tenosynovectomy (10/17/2014)Mammogram - screening (06/03/2014)Colonoscopy (07/04/2005)durrach resection - 02/04/2013teeth extractiontubal lig [facility] surgery service Medications acetaminophen(Tylenol), 325 mg, PO, [...] Relationship: Father, Age: Unknown, Cause: Lung Cancer Immunizations Vaccine Date Status influenza virus vaccine, inactivated 04/23/2021 Recorded SARS-CoV-2 (COVID-19) mRNA-1273 vaccine 09/29/2020 Recorded Comments : 2021-04-26: Historical information-source unspecified SARS-CoV-2 (COVID-19) mRNA-1273 vaccine 09/01/2020 Given pneumococcal 23-valent vaccine 08/21/2019 Given tetanus/diphtheria/pertuss, acel (Tdap) 08/21/2019 Given influenza virus vaccine, inactivated 04/17/2018 Recorded influenza virus vaccine, inactivated 05/03/2017 Given influenza virus vaccine, inactivated 04/26/2016 Given pneumococcal 13-valent vaccine 04/22/2015 Given influenza virus vaccine, inactivated 04/22/2015 Given pneumococcal 13-valent vaccine 04/16/2015 Recorded Comments : 2021-04-26: Historical information-source unspecified influenza virus vaccine, inactivated 03/27/2014 Recorded influenza virus vaccine, inactivated 06/05/2013 Given tetanus/diphtheria/pertuss, acel (Tdap) 06/03/2009 Recorded measles/mumps/rubella/varicella vaccine 06/02/2009 Recorded pneumococcal 23-valent vaccine 11/14/2006 Recorded Comments : 2021-04-26: Historical information-source unspecified pneumococcal 23-valent vaccine 2006 Recorded pneumococcal 23-valent vaccine 07/17/2006 Recorded Comments : 2021-04-26: Historical information-source unspecified pneumococcal 23-valent vaccine 07/17/2001 Recorded Comments : 2021-04-26: Historical information-source unspecified Recommendations Health Maintenance Pending(in the next year) OverDue Medicare Annual Wellness Visit due09/29/22and every 1year Adult Influenza Vaccine due06/30/23and every 1year Due Adult COVID-19 Vaccination due09/15/23Unknown Frequency Adult Social Determinants of Health Screening due09/15/23Unknown Frequency Falls Plan of Care due09/15/23Unknown Frequency Hepatitis C Screening due09/15/23One-time only Shingles Vaccine due09/15/23One-time only Due In Future Body Mass Index not due until09/13/24and every 366day Satisfied(in the past 1 year) Satisfied Body Mass Index on09/13/23.Satisfied by SAMI Pearson Paul [1]Echo TransTHORacic TTE Complete; DO Durbin Jason D 03/23/2022 10:47 EDT Electronic Signature on File Electronically Reviewed/Signed by: Karen Raymond D.O. Author Signature Dt/Tm:09/15/2023 09:13 AM Department [facility] Patient Care team information Care Team Personnel Name: DO Raymond Gretchen Elizabeth Position: Physician - Family Med Member Role: Primary Care Provider Address: Address: [address] [place] [address], [address] Care Team Related Persons Name: RHODA SIMMONS Address: home [address] [facility], [place] [id number] Name: RHODA SIMMONS Address: home [address] [facility], [place] [id number] Name: RHODA SIMMONS Address: [facility] Address: home [address] [facility], [place] [phone] Name: YOKASTA HUTTON Address: [place] [address]
--- OUTSIDE RECORDS SUMMARY | 2024-01-13 01:23 | External Medical Summary | Continuity of Care Document ---
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 Name Role Phone Karen Raymond Primary Care Physicia n [phone] Encounter [facility] [id number] Date(s): 09/07/23 - 09/07/23 [facility] [address] [facility] [facility] [address] [id number] Encounter Diagnosis Hearing loss(Discharge Diagnosis) - 06/07/23 Lymphoma(Discharge Diagnosis) - 06/07/23 Osteopenia(Discharge Diagnosis) - 06/07/23 Thrombocytopenia(Discharge Diagnosis) - 06/07/23 RHEUMATOID ARTHRITIS(Discharge Diagnosis) - 06/07/23 Discharge Disposition: Home or Self Care Attending Physician: MD Carlos Cassandra Referring Physician: MD Carlos Cassandra Allergies, Adverse Reactions, Alerts Substance Reaction Severity [...] procedures as directed, Pharmacy: [facility]/pharmacy #[id number] Start Date: 01/29/18 Status: Ordered amoxicillin 500 mg oral capsule Start: 01/29/18 11:42:00 EDT, 4 cap, PO, As indicated, Disp# 12 cap, Refills: 3, one hour before dental and other procedures as directed Start Date: 01/29/18 Status: Ordered Colace 100 [...] Start Date: 09/15/17 Status: Ordered Mental Status 09/07/23 Barriers to Learning one year None evide nt Mandatory Health Literacy Documentation Yes Health Literacy Communication Barriers N ever Primary Language Romanian Problem List Condition Confirmation Course Effective Dates Status H ealth Status Informant Atrophic vaginitis Confirmed Active B-cell lymphoma Confirmed Active Hematuria 1, 2 Confirmed 04/22/20 Active Cannot hear Confirmed Active 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 2saw Dr. Sergio Chadwick, [place] [facility] [place]oncology is monitoring pt linically, no treatment is recommended currently. 4Low grade B cell lymphoma. Pt sees Dr. Robb at [facility] [place]. 5Sees Dr. Crescencio Hardy, manager management at [facility] 6multiple lung nodules up to 4mm noted in abd/pelvis CT in 02/2019. 7sees rheumatology 8sees Dr. Connor Robb, hemotologist at [facility] [place] 9sees rheumatology 10Pelvis US in 2019: 13mm anterior fundal fibroid. Otherwise unremarkable study. Diagnosis Diagnosis Type Effective Dates Health Status Clinical Service Informant Lymphoma Discharge Diagnosis 06/07/23 Thrombocytopenia Discharge Diagnosis 06/07/23 RHEUMATOID ARTHRITIS Discharge Diagnosis 06/07/23 Hearing loss Discharge Diagnosis 06/07/23 Non-Specified Osteopenia Discharge Diagnosis 06/07/23 Procedures Procedure Date Related Diagnosis Body Site [...] Surgical consultation forsurgical excision of a sales representative groceries lymph node is recommended. 10status post fine needle aspiration biopsy and clip placement of a sales representative groceries prominent right axillary lymph node. the specimen was sent stat to the pathology department for cytologic analysis 11Impression: There are several small right axillary lymph nodes with mildly prominent cortices that may be increased in cortical thickness compared to the previous ultrasound. Would recommend attempting ultrasound-guided fine-needle aspiration and/or core needle bipsy of a sales representative groceries lymph node for definitive characterization. This may [...] internal hemorrhoids. 35both hand tendon rupture repair. Social History Social History Type Response Smoking Status Never smoked cigaret william Sex Female Patient Care team information Care Team Personnel Name: DO Raymond Gretchen Elizabeth Position: Physician - Family Med Member Role: Primary Care Provider Address: Address: [address] [place] [address] Care Team Related Persons Name: RHODA SIMMONS Address: home [address] [place], [place] [phone] Name: RHODA SIMMONS Address: home [address] [place], [place] [phone] Name: RHODA SIMMONS Address: [place] Address: home [address] [place], [place] [phone] Name: YOKASTA HUTTON Address: [place] [address]
[2024-01-13 06:45] LABS: Hemoglobin 9.4 g/dl (12.0-16.0); Mean Corpuscular Hemoglobin 30.8 pg (25.0-34.0); Mean Corpuscular Hgb Conc 33.6 g/dL (32.0-36.0); Mean Corpuscular Volume 91.8 fL (80.0-100.0); Mean Platelet Volume 9.8 fL (9.4-12.4); Platelet Count 116 K/uL (130-400); RDW Coefficient of Variation 15.9 % (11.5-14.5); RDW Standard Deviation 54.1 fL (36.4-46.3); Red Blood Count 3.05 M/uL (4.20-5.40)
[2024-01-13 06:57] LABS: White Blood Count 3.67 K/ul (4.8-10.8)
[2024-01-13 07:07] LABS: INR 1.1 (0.9-1.1); Prothrombin Time 11.5 Seconds (9.0-12.0)
[2024-01-13 07:14] LABS: Albumin Globulin Ratio 1.3 (0.9-2); Albumin Level 3.1 gm/dl (3.4-5.0); BUN Creatinine Ratio 31.9 (10-20); Bilirubin,Total 1.4 mg/dl (0.2-1.0); Calcium 8.7 mg/dl (8.6-10.3); Creatinine Clr Calc Pharmacy 75.4 ml/min; Est GFR (African American) 112.8 ml/min; Est GFR (Non-African American) 97.3 ml/min; Globulin 2.4 gm/dl (2.5-4.0); Magnesium 1.9 mg/dl (1.7-2.4); Potassium 3.9 mmol/L (3.5-5.1); Total Protein 5.5 gm/dl (6.0-8.3)
[2024-01-13 07:17] LABS: Basophils # (auto) 0.02 K/uL (0.00-0.20); Basophils % (auto) 0.5 %; Dohle Bodies 2+; Eosinophils # (auto) 0.09 K/uL (0.00-0.50); Eosinophils % (auto) 2.5 %; Immature Granulocytes # (auto) 0.01 K/uL (0.01-0.20); Immature Granulocytes % (auto) 0.3 %; Lymphocytes # (auto) 1.18 K/uL (1.20-3.40); Lymphocytes % (auto) 32.2 %; Monocytes # (auto) 0.69 K/uL (0.11-0.59); Monocytes % (auto) 18.8 %; Neutrophils # (auto) 1.68 K/uL (1.40-6.50); Neutrophils % (auto) 45.7 %; Polychromasia 1+
--- NOTE | 2024-01-13 07:51 | Electrocardiogram Report ---
Test Reason : Blood Pressure : / mmHG Vent. Rate : 082 BPM Atrial Rate : 082 BPM P-R Int : 146 ms QRS Dur : 102 ms QT Int : 364 ms P-R-T Axes : 034 049 023 degrees QTc Int : 425 ms Normal sinus rhythm Incomplete right bundle branch block Borderline ECG When compared with ECG of 30-OCT-2017 10:11, Incomplete right bundle branch block is now Present Confirmed by Jose Maddox ([id number]) on 01/13/2024 7:50:44 AM Referred By: REFERRED SELF Confirmed By:Jose Maddox
[2024-01-13] MEDS: FOLIC ACID 1 MG TAB PO SCH (10:50)
[2024-01-13] MEDS: PANTOprazole 40 MG TAB PO SCH (10:50)
[2024-01-13] MEDS: CHOLECALCIFEROL 25 MCG (1000 UNITS) TAB PO SCH (10:51)
--- NOTE | 2024-01-13 11:56 | Hospitalist Progress Note ---
Date of Service January 13, 2024 Assessment & Plan (1) Hypoxia: Plan: Mild acute hypoxic respiratory failure present on admission. Continue oxygen per nasal cannula to maintain saturation greater than 90%. Wean off as tolerated (2) Pneumonia: Plan: Bilateral. Continue azithromycin and Rocephin day 2. Obtain sputum culture if possible. Serial chest x-ray. (3) Chest pain: Plan: Atypical. Troponin negative and no acute EKG changes. (4) Aspiration into respiratory tract: Plan: Suspected. Speech therapy evaluation is ordered and pending. (5) B-cell lymphoma: Plan: Stable. No intervention necessary at this time (6) Rheumatoid arthritis: Plan: Ibuprofen replaces etodolac while hospitalized. Plan Hopeful discharge back to her home within the next 2 to 3 days Admission and Anticipated Discharge Date Admission Date: January 12, 2024 Subjective Alert and oriented. No distress. She has opted to take Motrin 600 mg 3 times a day in [address] of her E total lack which we do not have on formulary. Nebulizers have been switched to 3 times daily for ease of administration. She remains on azithromycin and Rocephin, day 2. She also remains on oxygen at 2 L/min. Chest pain is noncardiac. Troponin is negative and EKG reveals no acute changes. Speech therapy evaluation is pending. Review of Systems 2 Review of Systems: Constitutional-no fever or chills ENT-no blurred vision, no double vision, no epistaxis, no sore throat Respiratory-occasionally productive cough. No hemoptysis. No wheezing. Cardiac-no palpitations, no syncope. Chest discomfort on admission was atypical GI-no nausea, vomiting, diarrhea, melena, hematochezia -no urinary retention, no urinary incontinence, no dysuria, no hematuria Musculoskeletal- no muscle tenderness. Chronic joint pain from RA Skin-no bruising, no rashes, no pruritus Neuro-no isolated weakness, no paresthesia, no weakness Psych-no depression, no anxiety Physical Exam 2 Physical Exam: General-alert and oriented x3, no fever, no chills HEENT-head atraumatic and normocephalic, pupils equal and reactive to light, extraocular muscles intact Neck-no lymphadenopathy or thyromegaly, trachea midline Chest-scattered rhonchi. No audible wheezing. No dullness to percussion. Cardiac-regular rate and rhythm, normal S1 and S2 Abdomen-normal bowel sounds, no hepatosplenomegaly Extremities-no cyanosis, clubbing, or edema. RA changes multiple fingers both hands Neuro-cranial nerves II through XII intact, motor and sensory function within normal limits, strength symmetrical, no focal deficits Psych-normal affect, normal mood Results & Data Results & Data Vital Signs (Past 12 Hours) Vital Signs Temp Pulse Pulse Resp BP Pulse Ox O2 Del Method 01/13/24 11:36 36.5 C 70 20 103/48 L 97 Nasal Cannula 01/13/24 07:42 36.4 C L 69 20 103/59 L 96 Nasal Cannula 01/13/24 07:35 Nasal Cannula 01/13/24 07:27 65 16 95 Nasal Cannula 01/13/24 07:00 72 01/13/24 02:47 36.6 C 74 16 100/49 L 95 Nasal Cannula 01/13/24 00:38 71 12 91 Nasal Cannula O2 Flow Rate 01/13/24 11:36 2 01/13/24 07:42 2 01/13/24 07:35 2 01/13/24 07:27 2 01/13/24 07:00 01/13/24 02:47 2 01/13/24 00:38 2 Laboratory Results 01/13/24 06:05 01/13/24 06:05 PG Care Time/CCT Total # of Minutes Spent Total Time Spent with Patient: Total time spent is greater than 50% in coordination of care (as documented) at patient's floor/unit and/or counseling patient: Coding Level of Care Code 10144 SUB INP/OBS CARE 3/50MIN Diagnoses Hypoxia R09.02 Pneumonia J18.9 Chest pain R07.9 Aspiration into respiratory tract T17.908A B-cell lymphoma C85.10 Rheumatoid arthritis M06.9
[2024-01-13] MEDS: IBUPROFEN 600 MG TAB PO SCH (12:30)
[2024-01-13] MEDS: cefTRIAXone SODIUM 2,000 MG/50 ML BAG IV SCH (15:32)
[2024-01-13] MEDS: AZITHROMYCIN 500 MG in DEXTROSE 5% 250 ML IV SCH (16:09)
[2024-01-14 06:14] LABS: Hematocrit (blood only) 26.6 % (37.0-47.0); Hemoglobin 8.7 g/dl (12.0-16.0); Mean Corpuscular Hemoglobin 30.1 pg (25.0-34.0); Mean Corpuscular Hgb Conc 32.7 g/dL (32.0-36.0); Mean Platelet Volume 9.9 fL (9.4-12.4); Platelet Count 116 K/uL (130-400); RDW Standard Deviation 54.3 fL (36.4-46.3); Red Blood Count 2.89 M/uL (4.20-5.40); White Blood Count 3.91 K/ul (4.8-10.8)
[2024-01-14 06:40] LABS: BUN Creatinine Ratio 28.6 (10-20); Calcium 9.1 mg/dl (8.6-10.3); Creatinine Clr Calc Pharmacy 63.3 ml/min; Est GFR (African American) 106.5 ml/min; Est GFR (Non-African American) 91.9 ml/min
[2024-01-14 07:14] LABS: Basophils # (auto) 0.02 K/uL (0.00-0.20); Basophils % (auto) 0.5 %; Eosinophils # (auto) 0.08 K/uL (0.00-0.50); Immature Granulocytes # (auto) 0.03 K/uL (0.01-0.20); Immature Granulocytes % (auto) 0.8 %; Lymphocytes # (auto) 1.44 K/uL (1.20-3.40); Lymphocytes % (auto) 36.8 %; Monocytes # (auto) 0.61 K/uL (0.11-0.59); Monocytes % (auto) 15.6 %; Neutrophils # (auto) 1.73 K/uL (1.40-6.50); Neutrophils % (auto) 44.3 %
--- NOTE | 2024-01-14 15:09 | Hospitalist Progress Note ---
Date of Service January 14, 2024 Assessment & Plan (1) Hypoxia: Plan: Mild acute hypoxic respiratory failure present on admission. Resolved. She is now on room air. (2) Pneumonia: Plan: Bilateral. Currently on azithromycin and Rocephin day 3. Obtain sputum culture if possible. Repeat portable chest x-ray again tomorrow, January 14 (3) Chest pain: Plan: Atypical. Troponin negative and no acute EKG changes. (4) Aspiration into respiratory tract: Plan: Ruled out. Speech therapy evaluated the patient. There is no problem. (5) B-cell lymphoma: Plan: Stable. No intervention necessary at this time (6) Rheumatoid arthritis: Plan: Ibuprofen replaces etodolac while hospitalized. Plan Hopeful discharge back to her home within the next 1 to 2 days. Possibly tomorrow, January 14 Admission and Anticipated Discharge Date Admission Date: January 12, 2024 Subjective Alert. No distress. Speech therapy evaluated the patient and there were no problems. She is now on room air, 90% saturation. Hemoglobin has drifted down to 8.7. Iron is 42 and fecal occult blood is pending. No overt GI bleeding. OT and PT assessments requested. Will repeat portable chest x-ray again tomorrow, January 14. She remains on azithromycin and Rocephin, day 3 Review of Systems 2 Review of Systems: Constitutional-no fever or chills ENT-no blurred vision, no double vision, no epistaxis, no sore throat Respiratory-occasionally productive cough. No hemoptysis. No wheezing. Cardiac-no palpitations, no syncope. Chest discomfort on admission was atypical GI-no nausea, vomiting, diarrhea, melena, hematochezia -no urinary retention, no urinary incontinence, no dysuria, no hematuria Musculoskeletal- no muscle tenderness. Chronic joint pain from RA Skin-no bruising, no rashes, no pruritus Neuro-no isolated weakness, no paresthesia, no weakness Psych-no depression, no anxiety Physical Exam 2 Physical Exam: General-alert and oriented x3, no fever, no chills HEENT-head atraumatic and normocephalic, pupils equal and reactive to light, extraocular muscles intact Neck-no lymphadenopathy or thyromegaly, trachea midline Chest-scattered rhonchi. No audible wheezing. No dullness to percussion. Cardiac-regular rate and rhythm, normal S1 and S2 Abdomen-normal bowel sounds, no hepatosplenomegaly Extremities-no cyanosis, clubbing, or edema. RA changes multiple fingers both hands Neuro-cranial nerves II through XII intact, motor and sensory function within normal limits, strength symmetrical, no focal deficits Psych-normal affect, normal mood Results & Data Results & Data Vital Signs (Past 12 Hours) Vital Signs Temp Pulse Pulse Resp BP Pulse Ox O2 Del Method 01/14/24 13:13 81 16 91 Room Air 01/14/24 08:00 Room Air 01/14/24 07:50 36.4 C L 67 18 99/56 L 90 Room Air 01/14/24 07:15 68 01/14/24 07:06 72 16 92 Room Air 01/14/24 04:59 16 95 Room Air 01/14/24 04:59 71 115/60 01/14/24 03:49 36.8 C 69 16 93/54 L 91 Room Air Laboratory Results 01/14/24 05:38 01/14/24 05:38 PG Care Time/CCT Total # of Minutes Spent Total Time Spent with Patient: Total time spent is greater than 50% in coordination of care (as documented) at patient's floor/unit and/or counseling patient: Coding Level of Care Code 83565 SUB INP/OBS CARE 3/50MIN Diagnoses Hypoxia R09.02 Pneumonia J18.9 Chest pain R07.9 Aspiration into respiratory tract T17.908A B-cell lymphoma C85.10 Rheumatoid arthritis M06.9
[2024-01-14] MEDS ORDERED: ALBUTEROL 0.5% NEB SOLN 2.5 MG/0.5 ML VIAL NEB PRN (18:01)
[2024-01-14] MEDS: ETODOLAC 400 MG PO SCH (20:57)
--- NOTE | 2024-01-15 07:01 | XRay Report ---
XR chest 1V portable HISTORY: Follow-up pneumonia COMPARISON: Chest 01/12/2024. FINDINGS: No pneumothorax. The cardiac silhouette is normal in size. There are are trace bilateral pl eural effusions. Patchy mid to lower lung zone airspace opacities are again noted consistent with the patient's pneumonia. No evidence for pulmonary edema. The right shoulder prosthesis. No acute fractu res within the chest. IMPRESSION: 1. Patchy bilateral mid to lower lung zone airspace opacities again noted consistent with the patient 's history of a pneumonia. 2. Trace bilateral pleural effusions. ACT 112: Negative or not required by law. Electronically signed by: Daren Madden M.D. 01/15/2024 6:59 AM
[2024-01-15 07:13] LABS: Basophils # (auto) 0.04 K/uL (0.00-0.20); Basophils % (auto) 0.7 %; Eosinophils # (auto) 0.16 K/uL (0.00-0.50); Eosinophils % (auto) 2.8 %; Hematocrit (blood only) 32.3 % (37.0-47.0); Hemoglobin 10.8 g/dl (12.0-16.0); Immature Granulocytes # (auto) 0.07 K/uL (0.01-0.20); Immature Granulocytes % (auto) 1.2 %; Lymphocytes # (auto) 1.79 K/uL (1.20-3.40); Lymphocytes % (auto) 31.5 %; Mean Corpuscular Hemoglobin 30.6 pg (25.0-34.0); Mean Corpuscular Hgb Conc 33.4 g/dL (32.0-36.0); Mean Corpuscular Volume 91.5 fL (80.0-100.0); Mean Platelet Volume 9.5 fL (9.4-12.4); Monocytes % (auto) 14.1 %; Neutrophils # (auto) 2.82 K/uL (1.40-6.50); Neutrophils % (auto) 49.7 %; Platelet Count 150 K/uL (130-400); RDW Coefficient of Variation 15.8 % (11.5-14.5); Red Blood Count 3.53 M/uL (4.20-5.40); White Blood Count 5.68 K/ul (4.8-10.8)
[2024-01-15 10:51] LABS: Calcium 9.4 mg/dl (8.6-10.3); Potassium 4.2 mmol/L (3.5-5.1)
[2024-01-15 10:56] LABS: BUN Creatinine Ratio 27.5 (10-20); Creatinine Clr Calc Pharmacy 69.5 ml/min; Est GFR (African American) 109.8 ml/min; Est GFR (Non-African American) 94.7 ml/min
--- NOTE | 2024-01-15 13:07 | Discharge Summary ---
Date of Service January 15, 2024 Admission HPI Per Admitting Provider Zahira is a 73-year-old female with a past medical history significant for rheumatoid arthritis, low-grade B-cell lymphoma (currently in observation), thrombocytopenia, who presented to the [facility] ED via EMS from an acute care clinic due to complaints of chest pain and shortness of breath. On arrival to the ED she was noted to be hypoxic at 89% on room air, febrile at 38.8 C, but otherwise stable. Labs were significant for a white blood cell count of 3.95, stable platelet count of 128, high-sensitivity troponin and procalcitonin within normal limits, and full respiratory bio fire negative. Chest x-ray was read as nodular bilateral mid and lower lung airspace opacities. The findings favor an infectious process, radiographic follow-up to ensure resolution is recommended. Prior to admission the patient was given a dose of ceftriaxone, azithromycin, 650 mg acetaminophen, 400 mg ibuprofen, and 1 L normal saline. Patient was sitting in bed in no acute distress at the time of the exam with her sitting bedside, history was obtained from both. They explained that the patient initially started to develop a sore throat on 01/09/2024. Over the next few days she started to develop increased shortness of breath, a productive cough, and bilateral lower rib pain exacerbated with cough.She had a fever of 101F on 01/11/2024. When asked about a history of aspiration, she states that when she drinks cold liquids she feels as though she gets esophageal spasms and can aspirate at times. She has never had a swallow evaluation. She denies a history of swallowing solid foods. She presented to the urgent care clinic today and was then sent to the ED due to hypoxia. She confirms that she does not have a previous history of pneumonia, has never received treatment for her lymphoma (diagnosis was 3 years ago), and was taken off of her previous methotrexate after she received her diagnosis of lymphoma. She is currently not on immunosuppressive therapy for her rheumatoid arthritis. Her symptoms are moderately improved compared to arrival, her chest pain has resolved. We discussed CODE STATUS, she is a full code and her daughter is her primary decision maker with her as her secondary decision maker. Please refer to Dr. Araujo's attestation for any changes to the treatment plan Principal Diagnosis Bilateral pneumonia, acute hypoxic respiratory failure, hypokalemia, hypophosphatemia, chest pain without acute coronary syndrome Discharge Exam General-alert and oriented x3, no fever, no chills HEENT-head atraumatic and normocephalic, pupils equal and reactive to light, extraocular muscles intact Neck-no lymphadenopathy or thyromegaly, trachea midline Chest-scattered rhonchi. No audible wheezing. No dullness to percussion. Cardiac-regular rate and rhythm, normal S1 and S2 Abdomen-normal bowel sounds, no hepatosplenomegaly Extremities-no cyanosis, clubbing, or edema. RA changes multiple fingers both hands Neuro-cranial nerves II through XII intact, motor and sensory function within normal limits, strength symmetrical, no focal deficits Psych-normal affect, normal mood Discharge Data Allergies Allergy/AdvReac Type Severity Reaction Status Date / Time gold sodium thiomalate AdvReac Intermediate SORES IN Verified 01/12/24 17:30 MOUTH Consultations 01/12/24 16:56 ED Decision to Admit Stat Ordered Studies 01/12/24 20:39 CT angio chest PE protocol Stat Hospital Course (1) Hypoxia: Mild acute hypoxic respiratory failure present on admission. Resolved. She is now on room air. She had a two-step evaluation today, January 14, and she does not require home oxygen (2) Pneumonia: Bilateral. Treated while hospitalized with azithromycin and Rocephin. She will be discharged to home on oral azithromycin. Chest x-ray repeated today, January 14, is negative for any significant change from previous imaging (3) Chest pain: Atypical. Troponin negative and no acute EKG changes. No evidence of acute coronary syndrome (4) Aspiration into respiratory tract: Ruled out. Speech therapy evaluated the patient. (5) B-cell lymphoma: Stable. No intervention necessary at this time (6) Rheumatoid arthritis: Ibuprofen temporarily replaced a total lack while hospitalized until the family was able to bring in the etodolac. Stable Plan Home today, January 14, and azithromycin for a few more days Total Time Total Time Spent Total Time Spent (In Minutes): 50 minutes Discharge Plan Discharge Items Patient Disposition: Home - Home Health Services Reason For Visit: HYPOXIA, PNEUMONIA, SOB, CHEST PAIN Discharge Diagnosis: Bilateral pneumonia, acute hypoxic respiratory failure, chest pain without acute coronary syndrome, hypokalemia, hypophosphatemia Activity: Resume your previous activity Non-emergency contact: Primary Care Provider Call non-emergency contact if: your symptoms worsen Follow-up/Referrals: Karen Raymond, [Primary Care Provider] - 01/17/24 11:05 am (THIS APPOINTMENT WILL BE WITH DR LANE.) Diet: Regular Addtl Attending Provider Instructions: Take azithromycin antibiotic daily for the next 5 days Pending Studies at Discharge: No Stand-Alone Forms: My [facility], Smoking Cessation Medications and DC Order Prescriptions: New azithromycin 500 mg tablet 500 mg PO DAILY 5 Days Qty: 5 0RF Continued acetaminophen [Tylenol Arthritis Pain] 650 mg tablet extended release 650 mg PO TID PRN (Reason: Pain) docusate sodium 100 mg tablet 100 mg PO BID alendronate 70 mg tablet 70 mg PO WE folic acid 1 mg Tablet 1 mg PO DAILY etodolac 400 mg tablet 400 mg PO BID cholecalciferol (vitamin D3) [Vitamin D3] 25 mcg (1,000 unit) Tablet 25 mcg PO BID lutein 20 mg Tablet 20 mg PO DAILY Rx Instructions: give with meal/snack Discharge Orders: Discharge Order (Routine); Ordered 01/15/24 Ordered By: Trey Jean Admission Data Admit Date/Time: 01/12/24 18:14 Attending Provider: Trey Jean Admit Provider: Xochilt Araujo Primary Care Provider: Karen Raymond Other Providers: Xochilt Araujo Coding Level of Care Code 14087 INP/OBS DISCH >30 MIN Diagnoses Hypoxia R09.02 Pneumonia J18.9 Chest pain R07.9 Aspiration into respiratory tract T17.908A B-cell lymphoma C85.10 Rheumatoid arthritis M06.9
== END 2024-01-15 16:29 | disposition home health service (06) | DRG 193 ==
LOC: ED 15:30 → SUATTDRO 18:14 → 2N 18:14